=== PATIENT | female | born 1965 | race Two or more races ===

== ENCOUNTER 2024-02-17 13:25 | Outpatient (OUT) | payer OTHER, SELFPAY ==
--- NOTE | 2024-02-17 13:39 | ECG_ITS ---
[facility] Test Date: 2024-02-17 Pat Name: ANDREA CHAPIN Department: Room: - Gender: Female [employer] Supervisor: : [id number] Requested By: BERNARDO HOLLINS Order Number: [id number] Reading MD: CORY CLARKE Measurements Intervals [place] Rate: 64 P: 79 MS: 137 QRS: 6 QRSD: 86 T: 60 QT: 413 QTc: 427 Interpretive Statements SINUS RHYTHM No previous ECG available for comparison Electronically Signed On 02-18-2024 5:13:14 EST by CORY CLARKE
[2024-02-17 14:18] LABS: Basophils Absolute Auto 0.1 10^3/uL (0.0-0.1); Basophils Percent Auto 0.6 % (0.2-2.0); Eosinophils Absolute Auto 0.1 10^3/uL (0.0-0.7); Eosinophils Percent Auto 1.4 % (0.9-7.0); Hematocrit 39.7 % (36.0-48.0); Hemoglobin 13.6 g/dL (12.0-16.0); Immature Granulocytes Abs Auto 0.02 10^3/uL (0.00-0.03); Immature Granulocytes Pct Auto 0.2 % (0.0-0.5); Lymphocytes Absolute Auto 3.4 10^3/uL (1.2-3.8); Lymphocytes Percent Auto 38.4 % (20.5-60.0); Mean Corpuscular HGB Conc 34.3 g/dL (29.9-35.2); Mean Corpuscular Hemoglobin 31.7 pg (26.7-34.0); Mean Corpuscular Volume 92.5 fL (81.0-99.0); Mean Platelet Volume 10.7 fL (9.5-13.5); Monocytes Absolute Auto 0.8 10^3/uL (0.3-0.8); Monocytes Percent Auto 8.9 % (1.7-12.0); Neutrophils Absolute Auto 4.5 10^3/uL (1.4-6.5); Neutrophils Percent Auto 50.5 % (43.0-75.0); Platelet Count 303 10^3/uL (150-450); Red Blood Count 4.29 10^6/uL (4.20-5.40); Red Cell Distribution Width 12.6 % (11.0-15.0); White Blood Count 8.8 10^3/uL (4.0-11.0)
== END 2024-02-17 13:26 | disposition home or self-care (01) ==
LOC: PST 13:31
PROVIDERS: PCP Family Medicine; Visit Provider Otolaryngology
DX: Z01.810 Encounter for preprocedural cardiovascular examination (principal); Z01.812 Encounter for preprocedural laboratory examination; H69.93 Unspecified Eustachian tube disorder, bilateral
CPT/HCPCS: 85025; 93005

== ENCOUNTER 2024-02-19 09:37 | Day surgery (SDC) | payer OTHER, SELFPAY ==
[2024-02-17 14:08] VITALS: BP 116/77; PULSE 68; TEMP 36.2; O2SAT 99; BMI 28.6
[2024-02-19] VITALS (9 sets, daily range): BP systolic 102–128; BP diastolic 65–82; PULSE 71–97; TEMP 36.4–36.6; O2SAT 97–100; BMI 21.2
--- NOTE | 2024-02-19 | OP_ITS ---
OPERATION DATE: 02/19/2024 PRIMARY CARE PROVIDER: Raghavendra Gan PA-C SURGEON: Katherine Andre M.D. PREOPERATIVE DIAGNOSIS: Bilateral eustachian tube dysfunction. POSTOPERATIVE DIAGNOSIS: Bilateral eustachian tube dysfunction. PROCEDURE: Bilateral myringotomy and tubes. ANESTHESIA: General LMA. COMPLICATIONS: None. FINDINGS: Scant left serous effusion and right serous effusion. INDICATIONS: This 58-year-old woman presented with bilateral conductive hearing loss with a negative right tympanogram and a flat left tympanogram, with serous effusion evident on the left hand side. PROCEDURE: Patient identified in the holding area and taken back to the OR where she was placed in the supine position. After induction of general LMA anesthesia, the right ear was approached with the otomicroscope. Cerumen was cleaned from the canal using a cerumen curette and an anterior radial myringotomy was performed. A modified Jean?s tube was folded, inserted through the myringotomy and opened in the middle ear using microdissection. Attention was then turned to the left ear and the same procedure performed. Patient was then awakened and taken to the recovery room in good condition. MUKESH
--- OUTSIDE RECORDS SUMMARY | 2024-02-19 09:51 | XMS_ITS | CCD ---
Author Organization [facility] Care Team Providers Care Cannoneer Name Role Phone Itz Hall DO Primary Care Provider Itz HALL Primary Care Physician Shilpa Michelle Primary Care Physician Gunjan Ann Unavailable Unavailable Itz Hall DO Primary Care Provider PROVIDER, UNKNOWN Referring Unavailable ITZ HALL Primary Care Unavailable Itz Hall DO Primary Care Provider Itz HALL Primary Care Physician Yovany Ivan Attending Unavailable Yovany Ivan Admitting Unavailable Yovany Ivan Referring Unavailable Reece Russell Attending Unavailable Reece Russell Admitting Unavailable Reece Russell Referring Unavailable Robinson Pederson. Attending Unavailable Yovany Ivan Attending Unavailable Yovany Ivan Admitting Unavailable Yovany Ivan Referring Unavailable Rafael VAZQUEZ Itz S Primary Care Provider YOVANY IVAN Attending Unavailable ITZ HALL Primary Care Unavailable ITZ HALL Primary Care Unavailable ITZ HALL Primary Care Unavailable YOVANY IVAN Attending Unavailable ITZ HALL Primary Care Unavailable Robinson Thao Primary Care Provider BERNARDO HOLLINS Attending Unavailable ROBINSON PEDERSON Referring Unavailable YAJAIRA LOUIS Attending Unavailable BERNARDO HOLLINS Attending Unavailable Allergies Allergy Classification Reported Allergen(s) Allergy Type Date of Onset Reaction(s) Facility (20 sources) Latex; Translations: [LATEX] Drug Intolerance 1 Rash, Eruption of skin (disorder) [facility] (6 sources) Bee/Wasp/Ant venom; Translations: [Bee Stings] Propensity to adverse reactions to substance [facility] (2 sources) Honey bee venom Propensity to adverse reactions 4 [facility] Work Phone: (2 sources) Latex Propensity to adverse reactions 4 Itching, Rash [facility] Medications Current Medications Medication Drug Class(es) Dates Sig (Normalized) Sig (Original) diazePAM 5 mg oral tablet (20 sources) Benzodiazepine Start: 01-25-2024 End: 04-24-2024 take 1 tablet by mouth every six hours as needed for anxiety and anxiety diazePAM (VALIUM) 5 mg tablet Indications: Anxiety Take 1 tablet by mouth every 6 hours as needed for up to 90 days. 50 tablet 1 01/25/2024 04/24/2024 Active Start: 06-09-2023 End: 07-09-2023 take 1 tablet by mouth every six hours as needed diazePAM (VALIUM) 5 mg tablet Indications: Malignant neoplasm of upper-outer quadrant of left breast in female, estrogen receptor negative (HCC) , Abnormal mammogram of left breast Take 1 tablet by mouth every 6 hours as needed for up to 30 days. 50 tablet 1 06/09/2023 07/09/2023 Active Start: 12-05-2022 End: 01-23-2024 take 1 tablet by mouth every six hours as needed diazePAM (VALIUM) 5 mg tablet Indications: Malignant neoplasm of upper-outer quadrant of left breast in female, estrogen receptor negative (HCC) , Abnormal mammogram of left breast Take 1 tablet by mouth every 6 hours as needed for up to 30 days. 50 tablet 1 12/05/2022 01/04/2023 Active Start: 06-06-2022 End: 09-08-2022 take 1 tablet by mouth every eight hours as needed diazePAM (VALIUM) 5 mg tablet Indications: Malignant neoplasm of upper-outer quadrant of left breast in female, estrogen receptor negative (HCC) , Anxiety Take 1 tablet by mouth every 8 hours as needed for up to 90 days. 50 tablet 1 06/10/2022 09/08/2022 Start: 08-31-2021 End: 11-29-2021 take 1 tablet by mouth every eight hours as needed diazePAM (VALIUM) 5 mg tablet Indications: Malignant neoplasm of upper-outer quadrant of left breast in female, estrogen receptor negative (HCC) , Anxiety Take 1 tablet by mouth every 8 hours as needed for up to 90 days. 50 tablet 1 08/31/2021 11/29/2021 Active Start: 06-04-2019 take 1 tablet by sherrie th once daily Valium 5 mg Tab 5 mg = 1 tab(s), Oral, Daily, # 30 tab(s), Refills(s) 5, Pharmacy: [facility] - [place], 167.6, cm, 05/31/19 14:12:00 EST, Height/Length Measured, 56.1, kg, 05/31/19 14:12:00 EST, Weight Measured Start Date: 06/04/19 Status: Ordered Comment on above: Take 1 tablet by sherrie th every 8 hours as needed for up to 90 days. Take 1 tablet by sherrie th every 6 hours as needed for up to 30 days. Take 5 mg by mouth e very 6 hours as needed. diphenhydrAMINE (16 sources) Histamine-1 Receptor Antagonist diphenhydramine HCl (BENADRYL ALLERGY ORAL) Take by mouth. Active diphenhydramine HCl (BENADRYL ALLERGY ORAL) Take by mouth. 0 Active Comment on above: Take by mouth. fluticasone propionate 0.05 mg/actuat metered dose nasal spray (1 source) Corticosteroid Start: 12-01-2023 End: 12-08-2023 take 1 spray(s) nasal route twice daily Flonase 0.05 mg/inh [place] 1 spray(s), Nasal, BID for 7 day(s), 16 gm, Refill(s) 0, each nostril, [facility], 168, cm, 12/01/23 15:54:00 EDT, Height/Length Dosing, 59, kg, 12/01/23 15:54:00 EDT, Weight Dosing Start Date: 12/01/23 Stop Date: 12/08/23 Status: Ordered loratadine 10 mg oral capsule (12 sources) Start: 01-05-2020 End: 06-06-2022 loratadine 10 mg cap Take 10 mg by mouth. 01/05/2020 Active take 1 tablet by mouth once kailey y loratadine (Claritin) 10 MG tablet Take 10 mg by mouth Daily Active Comment on above: Take by mouth. triamcinolone acetonide 0.055 mg/actuat metered dose nasal spray (5 sources) Corticosteroid Start: 12-22-2023 End: 12-21-2024 take 2 spray(s) nasal route once daily triamcinolone (Nasacort) 55 MCG/ACT nasal inhaler Indications: OME (otitis media with effusion), left Administer 2 sprays into each nostril Daily 16.5 g 11 12/22/2023 12/21/2024 Active Completed/Discontinued Medications Medication Drug Class(es) Dates Sig (Normalized) Sig (Original) acetaminophen 325 mg / oxyCODONE hydrochloride 5 mg oral tablet (2 sources) Opioid Agonist End: 01-08-2024 oxyCODONE-acetaminop hen (PERCOCET) 5-325 mg tablet Take by mouth every 8 hours as needed for pain. 01/08/2024 Discontinued (Discontinued by Patient) Comment on above: Take by mouth every 8 hours as needed for pain. EPINEPHrine 0.01 mg/ml / lidocaine hydrochloride 10 mg/ml injectable solution (1 source) Antiarrhythmic, alpha-Adrenergic Agonist, beta-Adrenergic Agonist, Catecholamine, Amide Local Anesthetic Start: 07-04-2022 End: 07-04-2022 SUBCUTANEOUS, X (OR/PROCEDURE) PRN, Starting on Coni 07/04/22 at 0957, Until Coni 07/04/22 at 0957, Intraprocedure 10 ml lidocaine hydrochloride 10 mg/ml injection (1 source) Antiarrhythmic, Amide Local Anesthetic Start: 07-04-2022 End: 07-04-2022 SUBCUTANEOUS, X (OR/PROCEDURE) PRN, Starting on Coni 07/04/22 at 0957, Until Coni 07/04/22 at 0957, Intraprocedure pantoprazole 40 mg delayed release oral tablet (2 sources) Proton Pump Inhibitor Start: 05-31-2021 End: 06-06-2022 take 1 tablet by mouth once daily pantoprazole DR (PROTONIX) 40 mg tablet Take 1 tablet by mouth once daily. 90 tablet 3 05/31/2021 06/06/2022 Discontinued Comment on above: Take 1 tablet by sherrie once daily. Problems Problem Classification Problem Date Documented Da te Episodic/Chronic Anxiety disorders (7 sources) Anxiety; Translations: [Anxiety disorder, unspecified] Chronic Cancer of breast (9 sources) Malignant neoplasm of upper-outer quadrant of female breast; Translations: [Malignant neoplasm of upper-outer quadrant of left female breast] Onset: 01-08-2024 Chronic Fever of unknown origin (5 sources) Fever 02-28-2020 Episodic Nonmalignant breast conditions (2 sources) Mammographic calcification found on diagnostic imaging of breast; Translations: [Mammographic calcification of breast] Onset: 07-04-2022 07-04-2022 Episodic Other circulatory disease (7 sources) Low blood pressure; Translations: [Hypotension, unspecified] Onset: 12-18-2023 04-20-2012 Episodic Other ear and sense organ disorders (1 source) Bilateral hearing loss; Translations: [Conductive hearing loss, unilateral, right ear with restricted hearing on the contralateral side] 02-13-2024 Chronic Other gastrointestinal disorders (7 sources) Constipation; Translations: [Constipation, unspecified] Onset: 12-18-2023 10-05-2018 Episodic Other gastrointestinal disorders (7 sources) Dysphagia; Translations: [Dysphagia, unspecified] Onset: 12-18-2023 11-04-2018 Episodic Other nervous system disorders (1 source) Chronic pain; Translations: [Other chronic pain] Onset: 02-04-2022 Chronic Other nutritional; endocrine; and metabolic disorders (5 sources) Loss of appetite 10-05-2018 Episodic Other screening for suspected conditions (not mental disorders or infectious disease) (3 sources) Mammography abnormal; Translations: [Other abnormal and inconclusive findings on diagnostic imaging of breast] Episodic Otitis media and related conditions (3 sources) Acute secretory otitis media; Translations: [Other acute nonsuppurative otitis media, bilateral] Onset: 12-01-2023 Episodic Residual codes; unclassified (5 sources) Chronic back pain 10-20-2019 Episodic Residual codes; unclassified (5 sources) Generalized aches and pains 02-28-2020 Episodic Residual codes; unclassified (1 source) Estrogen receptor negative status [ER-]; Translations: [Malignant neoplasm of upper-outer quadrant of left breast in female, estrogen receptor negative (HCC)] Onset: 01-08-2024 Episodic Spondylosis; intervertebral disc disorders; other back problems (12 sources) Cervical radiculopathy; Translations: [Radiculopathy, cervical region] Onset: 02-04-2022 Episodic Substance-related disorders (5 sources) Smoker 10-20-2019 Chronic Comment on above: Added secondary to d ocumentation in Social History. Results Test Name Value Interpretation Reference Range Facility Auditory function testson Right Ear: Mild sensorineural hearing loss from 4K Hz - 6K Hz rising to normal hearing at 8K Hz Left Ear: Mild to severe conductive hearing loss above 500 Hz [facility] CA 27.29 BLOODon 01-09-2024 Cancer Ag - Qn 26.2 [arb'U]/mL NINF - 38.6 U/mL [facility] Comment on above: The CA27.29 test was performed using the Siemens Galeneaaur XP chemiluminometric immunoassay method. Results obtained with different assay methods or kits cannot be used interchangeably. Cancer Ag - Qnon 024 Interpretation and review of laboratory results [facility] CBC W Auto Differential pane l (Bld)on 01-08-2024 Basophils (Bld) [#/Vol] 0.04 10*3/uL [facility] Basophils/100 WBC (Bld) 0.5 % [facility] Differential cell count method Nom (Bld) Auto [facility] Eosinophils (Bld) [#/Vol] 0.15 10*3/uL [facility] Eosinophils/100 WBC (Bld) 1.9 % [facility] Erythrocyte distribution width (RBC) [Ratio] 12.6 % 11.5 - 15.0 % [facility] Hematocrit (Bld) [Volume fraction] 38.5 % 36.0 - 46.0 % [facility] Hemoglobin (Bld) [Mass/Vol] 13.4 g/dL 11.5 - 15.5 g/dL [facility] Immature granulocytes (Bld) [#/Vol] [facility] Immature granulocytes/100 WBC (Bld) 0.3 % [facility] Interpretation and review of laboratory results Abnormal [facility] Lymphocytes (Bld) [#/Vol] 2.89 10*3/uL [facility] Lymphocytes/100 WBC (Bld) 37.5 % [facility] MCH (RBC) [Entitic mass] 31.7 pg 26.0 - 34.0 pg [facility] MCHC (RBC) [Mass/Vol] 34.8 g/dL 30.5 - 36.0 g/dL [facility] MCV (RBC) [Entitic vol] 91.0 fL 80.0 - 100.0 fL [facility] Monocytes (Bld) [#/Vol] 0.89 10*3/uL High NINF [facility] Monocytes/100 WBC (Bld) 11.6 % [facility] Neutrophils (Bld) [#/Vol] 3.71 10*3/uL [facility] Neutrophils/100 WBC (Bld) 48.2 % [facility] Nucleated RBC (Bld) [#/Vol] NINF [facility] Nucleated RBC/100 WBC (Bld) [Ratio] 0.0 % /100 WBC [facility] Platelet mean volume (Bld) [Entitic vol] 10.9 fL 9.0 - 12.7 fL [facility] Platelets (Bld) [#/Vol] 290 10*3/uL [facility] RBC (Bld) [#/Vol] 4.23 10*6/uL 3.90 - 5.2 0 m/uL [facility] WBC (Bld) [#/Vol] 7.70 10*3/uL [facility] Basophils (Bld) [#/Vol] 0.04 10*3/uL Normal <0.11 [facility] Comment on above: Order Comment: Speci men Type: BLOOD SPECIMEN Ordering Facility: [facility] Address: [address] [place] [address] Performed By: #### 5 7021-8 #### [facility] CLIA [id number] [address] [place] [address] 965[address] Basophils/100 WBC (Bld) 0.5 % Normal [facility] Comment on above: Order Comment: Speci men Type: BLOOD SPECIMEN Ordering Facility: [facility] Address: [address] [place] [address] Performed By: #### 5 7021-8 #### [facility] CLIA [id number] [address] [place] [address]350 Differential cell count method Nom (Bld) Auto Normal [facility] Comment on above: Order Comment: Speci men Type: BLOOD SPECIMEN Ordering Facility: [facility] Address: [address] [place] [address] Performed By: #### 5 7021-8 #### [facility] CLIA [id number] [address] [place] [address] 18719 Eosinophils (Bld) [#/Vol] 0.15 10*3/uL Normal <0.46 [facility] Comment on above: Order Comment: Speci men Type: BLOOD SPECIMEN Ordering Facility: [facility] Address: [address] [place] [address] Performed By: #### 5 7021-8 #### [facility] CLIA [id number] [address] [place] [address] 42665 Eosinophils/100 WBC (Bld) 1.9 % Normal [facility] Comment on above: Order Comment: Speci men Type: BLOOD SPECIMEN Ordering Facility: [facility] Address: [address] [place] [address] Performed By: #### 5 7021-8 #### [facility] CLIA [id number] [address] [place] [address] 05539 Erythrocyte distribution width (RBC) [Ratio] 12.6 % Normal 11.5-15.0 [facility] Comment on above: Order Comment: Speci men Type: BLOOD SPECIMEN Ordering Facility: [facility] Address: [address] [place] [address] Performed By: #### 5 7021-8 #### [facility] CLIA [id number] [address] [place] [address] 17742 Hematocrit (Bld) [Volume fraction] 38.5 % Normal 36.0-46.0 [facility] Comment on above: Order Comment: Speci men Type: BLOOD SPECIMEN Ordering Facility: [facility] Address: [address] [place] [address] Performed By: #### 5 7021-8 #### [facility] CLIA [id number] [address] [place] [address] 80693 Hemoglobin (Bld) [Mass/Vol] 13.4 g/dL Normal 11.5-15.5 [facility] Comment on above: Order Comment: Speci men Type: BLOOD SPECIMEN Ordering Facility: [facility] Address: [address] [place] [address] Performed By: #### 5 7021-8 #### [facility] CLIA [id number] [address] [place] [address] 91634 Immature granulocytes (Bld) [#/Vol] 10*3/uL Normal <0.10 [facility] Comment on above: Order Comment: Speci men Type: BLOOD SPECIMEN Ordering Facility: [facility] Address: [address] [place] [address] Performed By: #### 5 7021-8 #### [facility] CLIA [id number] [address] [place] [address] 71700 Immature granulocytes/100 WBC (Bld) 0.3 % Normal [facility] Comment on above: Order Comment: Speci men Type: BLOOD SPECIMEN Ordering Facility: [facility] Address: [address] [place] [address] Performed By: #### 5 7021-8 #### [facility] CLIA [id number] [address] [place] [address] 07509 Lymphocytes (Bld) [#/Vol] 2.89 10*3/uL Normal 1.00-4.00 [facility] Comment on above: Order Comment: Speci men Type: BLOOD SPECIMEN Ordering Facility: [facility] Address: [address] [place] [address] Performed By: #### 5 7021-8 #### [facility] CLIA [id number] [address] [place] [address] 05103 Lymphocytes/100 WBC (Bld) 37.5 % Normal [facility] Comment on above: Order Comment: Speci men Type: BLOOD SPECIMEN Ordering Facility: [facility] Address: [address] [place] [address] Performed By: #### 5 7021-8 #### [facility] CLIA [id number] [address] [place] [address] 79553 MCH (RBC) [Entitic mass] 31.7 pg Normal 26.0-34.0 [facility] Comment on above: Order Comment: Speci men Type: BLOOD SPECIMEN Ordering Facility: [facility] Address: [address] [place] [address] Performed By: #### 5 7021-8 #### [facility] CLIA [id number] [address] [place] [address] 15023 MCHC (RBC) [Mass/Vol] 34.8 g/dL Normal 30.5-36.0 [facility] Comment on above: Order Comment: Speci men Type: BLOOD SPECIMEN Ordering Facility: [facility] Address: [address] [place] [address] Performed By: #### 5 7021-8 #### [facility] CLIA [id number] [address] [place] [address] 04799 MCV (RBC) [Entitic vol] 91.0 fL Normal 80.0-100.0 [facility] Comment on above: Order Comment: Speci men Type: BLOOD SPECIMEN Ordering Facility: [facility] Address: [address] [place] [address] Performed By: #### 5 7021-8 #### [facility] CLIA [id number] [address] [place] [address] 01075 Monocytes (Bld) [#/Vol] 0.89 10*3/uL High <0.87 [facility] Comment on above: Order Comment: Speci men Type: BLOOD SPECIMEN Ordering Facility: [facility] Address: [address] [place] [address] Performed By: #### 5 7021-8 #### [facility] CLIA [id number] [address] [place] [address] 69246 Monocytes/100 WBC (Bld) 11.6 % Normal [facility] Comment on above: Order Comment: Speci men Type: BLOOD SPECIMEN Ordering Facility: [facility] Address: [address] [place] [address] Performed By: #### 5 7021-8 #### [facility] CLIA [id number] [address] [place] [address] Neutrophils (Bld) [#/Vol] 3.71 10*3/uL Normal 1.45-7.50 [facility] Comment on above: Order Comment: Speci men Type: BLOOD SPECIMEN Ordering Facility: [facility] Address: [address] [place] [address]35 Performed By: #### 5 7021-8 #### [facility] CLIA [id number] [address] [place] [address] 04357 Neutrophils/100 WBC (Bld) 48.2 % Normal [facility] Comment on above: Order Comment: Speci men Type: BLOOD SPECIMEN Ordering Facility: [facility] Address: [address] [place] [address] Performed By: #### 5 7021-8 #### [facility] CLIA [id number] [address] [place] [address] 58605 Nucleated RBC (Bld) [#/Vol] 10*3/uL Normal <0.01 [facility] Comment on above: Order Comment: Speci men Type: BLOOD SPECIMEN Ordering Facility: [facility] Address: [address] [place] [address] Performed By: #### 5 7021-8 #### [facility] CLIA [id number] [address] [place] [address] 31229 Nucleated RBC/100 WBC (Bld) [Ratio] 0.0 /100 WBC Normal [facility] Comment on above: Order Comment: Speci men Type: BLOOD SPECIMEN Ordering Facility: [facility] Address: [address] [place] [address] Performed By: #### 5 7021-8 #### [facility] CLIA [id number] [address] [place] [address] 98132 Platelet mean volume (Bld) [Entitic vol] 10.9 fL Normal 9.0-12.7 [facility] Comment on above: Order Comment: Speci men Type: BLOOD SPECIMEN Ordering Facility: [facility] Address: [address] [place] [address] Performed By: #### 5 7021-8 #### [facility] CLIA [id number] [address] [place] [address] Platelets (Bld) [#/Vol] 290 10*3/uL Normal 150-400 [facility] Comment on above: Order Comment: Speci men Type: BLOOD SPECIMEN Ordering Facility: [facility] Address: [address] [place] [address] Performed By: #### 5 7021-8 #### [facility] CLIA [id number] [address] [place] [address] 77132 RBC (Bld) [#/Vol] 4.23 10*6/uL Normal 3.90-5.20 [facility] Comment on above: Order Comment: Speci men Type: BLOOD SPECIMEN Ordering Facility: [facility] Address: [address] [place] [address] Performed By: #### 5 7021-8 #### [facility] CLIA [id number] [address] [place] [address] 93297 WBC (Bld) [#/Vol] 7.70 10*3/uL Normal 3.70-11.00 [facility] Comment on above: Order Comment: Speci men Type: BLOOD SPECIMEN Ordering Facility: [facility] Address: [address] [place] [address] Performed By: #### 5 7021-8 #### [facility] CLIA [id number] [address] [place] [address]504 CNOVSPon 01-08-2024 CNOVSP Visit (SP) Office ([place]) MINNA [id number]) 1965 F Date Time Provider Department 01/08/24 3:15 PM YOVANY IVAN During your visit today, we recorded the following information about you: Temperature Pulse Respiration Blood pressure 97.7 degrees 80/minute 16/minute 129/76 Weight Height 60 kg 1.676 m Yovany Ivan MD 01/09/2024 6:09 AM Signed PATIENT NAME: Minna Yi DATE: 01/08/2024 PRIMARY CARE PHYSICIAN: Dr. Hall OTHER PHYSICIANS: Dr. Galindo, Dr. De Guzman Portions of this encounter note have been copied from my note from 07/10/2023 and has been updated where appropriate, and reflect my current medical decision making from today. CC: This is a 58 year old female with a history of breast cancer, seen for scheduled follow-up. INTERIM HISTORY: Since the patient's last visit here she has had no significant medical changes. Her chronic neck and back pain persist and are unchanged. She has ongoing anxiety for which she takes Valium with improvement. No new complaints today. She has noticed no changes in her breasts. Most recent mammogram 12/09/2023 benign. Routine surveillance mammogram at 12 months recommended. MEDICATIONS: oxyCODONE-acetaminophen (PERCOCET) 5-325 mg tablet Take by mouth every 8 hours as needed for pain. diazePAM (VALIUM) 5 mg tablet Take 5 mg by mouth every 6 hours as needed. diphenhydramine HCl (BENADRYL ALLERGY ORAL) Take by mouth. ALLERGIES: Latex PAST MEDICAL HISTORY: No past medical history on file. PAST SURGICAL HISTORY: No past surgical history on file. REVIEW OF SYSTEMS: GENERAL: No weight loss, malaise or fevers. HEENT: Negative for frequent or significant headaches, No changes in hearing or vision, no nose bleeds or other nasal problems RESPIRATORY: Negative for cough, wheezing or shortness of breath. CARDIOVASCULAR: Negative for chest pain, leg swelling or palpitations. GI: Negative for abdominal discomfort, blood in stools or black stools or change in bowel habits : No history of dysuria, frequency or incontinence MUSCULOSKELETAL: Negative for: joint pain or swelling, back pain and muscle pain SKIN: Negative for lesions, rash, and itching. HEMATOLOGY/LYMPHOLOGY: Negative for prolonged bleeding, bruising easily or swollen nodes. NEURO: No history of headaches, syncope, paralysis, seizures or tremors PHYSICAL EXAM: Vitals: BP 129/76 Pulse 80 Temp 36.5 ?C (97.7 ?F) (Temporal) Resp 16 Ht 167.6 cm (5' 5.98 ) Wt 60 kg (132 lb 4.4 oz) SpO2 97% BMI 21.36 kg/m? General appearance: well appearing, alert, in no acute distress, well-hydrated, well nourished Skin: skin color, texture, turgor normal, no suspicious rashes or lesions Head: normal Eyes: Anicteric sclera. Pupils are equally round and reactive to light. Extraocular movements are intact. Ears: negative findings: external ears normal to inspection and palpation Oropharynx: negative Neck: Supple, no adenopathy; thyroid symmetric, normal size Lymph Nodes: No Submandibular, cervical, supraclavicular, axillary, or inguinal lymphadenopathy present Breast: Well-healed left lumpectomy scar on the left with mild surrounding tenderness. Right breast normal. Back: no tenderness to palpation Lungs: clear to auscultation, no wheezing or rhonchi Heart: Negative. RRR without murmur, gallop, or rubs. No ectopy. Abdomen: Normal abdominal exam, Abdomen soft, non-tender. Bowel sounds normal. No masses, organomegaly Rectal: Not done Extremities: Extremities normal. No deformities, edema, or skin discoloration. Good capillary refill. Musculoskeletal: No joint swelling, deformity, or tenderness. Peripheral pulses: Normal PATHOLOGY: 07/04/2022 Breast, left, at 9:00, middle depth, calcifications, Top hat clip, stereotactic core biopsy: ---Benign breast parenchyma with stromal fibrosis. ---Microcalcifications are present within benign breast. LABORATORY DATA: Hemoglobin (g/dL) Date Value 01/08/2024 13.4 05/31/2021 13.7 Hematocrit (%) Date Value 01/08/2024 38.5 05/31/2021 41.0 WBC (k/uL) Date Value 01/08/2024 7.70 05/31/2021 9.01 Platelet Count (k/uL) Date Value 01/08/2024 290 05/31/2021 321 RADIOLOGY/OTHER STUDIES: 12/09/2023 Bilateral diagnostic mammogram ([facility]) Benign finding. Normal interval follow-up at 12 months recommended. 05/15/2023 Diagnostic left mammogram ([facility]) BI-RADS 3, probably benign. Short interval follow-up with bilateral mammogram at 6 months recommended. 01/03/2023 Bilateral diagnostic mammogram ([facility]) Benign findings. Normal interval follow-up. 06/11/2022 [facility] Mammogram interpretation The tissue in both breasts is extremely dense, which can decrease the sensitivity of the mammogram. There are no suspicious mammographic finding seen in the right breast, with overall pattern not significantly (more content not included)... Normal [facility] CNPNon 01-08-2024 CNPN Telephone (NCCAP) MINNA YI ([id number]) 1965 F Date Time Provider Department 01/08/24 YOVANY IVAN During your visit today, we recorded the following information about you: Johnny Wright 01/08/2024 4:00 PM Signed Diagnosed in 2008. Patient is requesting if her Mammogram can be changed to Screening. She states when it's ordered Diagnostic she gets a big out of pocket costs from her insurance. If in agreement, can you please place an order for screening? Thank you! Yovany Art MD 01/08/2024 4:44 PM Signed I will change the order from diagnostic to screening. Thanks, Johnny Wilson 01/08/2024 5:01 PM Signed Faxed order to [facility] January 08, 2024 5:01 PM Johnny Wright Allergies As of Date: 01/08/2024 Noted Allergy Reaction LATEX 06/01/2020 2 - Rash Date Reviewed: 01/08/2024 Reviewed by: Emmy Chen MA - Fully Assessed Reason for Visit: Change Of Order [9022] Prescriptions as of 01/08/2024 - loratadine 10 mg cap Take 10 mg by mouth. - triamcinolone acetonide (NASACORT AQ) 55 mcg nasal inhaler Use 2 Sprays in the nose once daily. - diazePAM (VALIUM) 5 mg tablet Take 5 mg by mouth every 6 hours as needed. - diphenhydramine HCl (BENADRYL ALLERGY ORAL) Take by mouth. Problem List As Of Date: 01/08/2024 (None) Encounter Status:Closed by JOHNNY WRIGHT on 01/08/24 Normal [facility] Cancer Ag27-29 SerPl-aCncon 01-08-2024 Cancer Ag 27-29 Qn 26.2 [arb'U]/mL Normal <38.6 [facility] Comment on above: Order Comment: Speci men Type: BLOOD SPECIMEN Ordering Facility: [facility] Address: [address] [place] [address] Result Comment: The CA27.29 test was performed using the Siemens Galeneaaur XP chemiluminometric immunoassay method. Results obtained with different assay methods or kits cannot be used interchangeably. Performed By: #### 1 7842-6 #### [facility] CLIA [id number] [address] [place] [address] [place] Comprehensive metabolic 2000 panelOrdered By: Leonora Davis on 01-08-2024 Albumin [Mass/Vol] 4.3 g/dL 3.9 - 4.9 g/dL [facility] ALP [Catalytic activity/Vol] 127 U/L High 34 - 123 U/L [facility] ALT [Catalytic activity/Vol] 12 U/L 7 - 38 U/L [facility] Anion gap [Moles/Vol] 10 mmol/L 8 - 15 mmol/L [facility] AST [Catalytic activity/Vol] 13 U/L 13 - 35 U/L [facility] Bilirubin [Mass/Vol] 0.2 mg/dL 0.2 - 1 .3 mg/dL [facility] Calcium [Mass/Vol] 10.1 mg/dL 8.5 - 10. 2 mg/dL [facility] Chloride [Moles/Vol] 102 mmol/L 98 - 10 7 mmol/L [facility] CO2 [Moles/Vol] 27 mmol/L 22 - 30 mmol/L [facility] Creatinine [Mass/Vol] 0.76 mg/dL 0.58 - 0.96 mg/dL [facility] GFR/1.73 sq M.predicted among non-blacks MDRD (S/P/Bld) [Vol rate/Area] 92 mL/min/{1.73_m2} - PINF [facility] Comment on above: Estimated Glomerular Filtration Rate (eGFR) is calculated using the 2020 CKD-EPI creatinine equation. This equation utilizes serum creatinine, sex, and age as parameters. The creatinine assay has traceable calibration to isotope dilution-mass spectrometry. Refer to KDIGO guidelines for clinical interpretation. In patients with unstable renal function, e.g. those with acute kidney injury, the eGFR may not accurately reflect actual GFR. Glucose [Mass/Vol] 95 mg/dL 74 - 99 mg/dL [facility] Comment on above: The [place] Diabete s Association (ADA) provides guidance for cutoff values for fasting glucose and random glucose. The ADA defines fasting as no caloric intake for at least 8 hours. Fasting plasma glucose results between 100 to 125 mg/dL indicate increased risk for diabetes (prediabetes). Fasting plasma glucose results greater than or equal to 126 mg/dL meet the criteria for diagnosis of diabetes. In the absence of unequivocal hyperglycemia, results should be confirmed by repeat testing. In a patient with classic symptoms of hyperglycemia or hyperglycemic crisis, random plasma glucose results greater than or equal to 200 mg/dL meet the criteria for diagnosis of diabetes. Reference: Standards of Medical Care in Diabetes 2016, [place] Diabetes Association. Diabetes Care. 2016.39(Suppl 1). Interpretation and review of laboratory results Abnormal [facility] Potassium [Moles/Vol] 4.5 mmol/L 3.7 - 5.1 mmol/L [facility] Protein [Mass/Vol] 7.4 g/dL 6.3 - 8.0 g/dL [facility] Sodium [Moles/Vol] 139 mmol/L 136 - 144 mmol/L [facility] Urea nitrogen [Mass/Vol] 11 mg/dL 7 - 21 mg/dL [facility] Comprehensive metabolic 2000 panelon 01-08-2024 Albumin [Mass/Vol] 4.3 g/dL Normal 3.9-4.9 [facility] Comment on above: Order Comment: Speci men Type: BLOOD SPECIMEN Ordering Facility: [facility] Address: [address] [place] [address] Performed By: #### 2 4323-8 #### [facility] CLIA [id number] [address] [place] [address] ALP [Catalytic activity/Vol] 127 U/L High 34-123 [facility] Comment on above: Order Comment: Speci men Type: BLOOD SPECIMEN Ordering Facility: [facility] Address: [address] [place] [id number] Performed By: #### 2 4323-8 #### [facility] CLIA [id number] [address] [place] [address] ALT [Catalytic activity/Vol] 12 U/L Normal 7-38 [facility] Comment on above: Order Comment: Speci men Type: BLOOD SPECIMEN Ordering Facility: [facility] Address: [address] [place], [place] [id number] Performed By: #### 2 4323-8 #### [facility] CLIA [id number] [address] [place] [address] Anion gap [Moles/Vol] 10 mmol/L Normal 8-15 [facility] Comment on above: Order Comment: Speci men Type: BLOOD SPECIMEN Ordering Facility: [facility] Address: [address] [place], [place] [id number] Performed By: #### 2 4323-8 #### [facility] CLIA [id number] [address] [place] [address] AST [Catalytic activity/Vol] 13 U/L Normal 13-35 [facility] Comment on above: Order Comment: Speci men Type: BLOOD SPECIMEN Ordering Facility: [facility] Address: [facility] [place] [id number] Performed By: #### 2 4323-8 #### [facility] CLIA [id number] [address] [place] [address] Bilirubin [Mass/Vol] 0.2 mg/dL Normal 0.2-1.3 [facility] Comment on above: Order Comment: Speci men Type: BLOOD SPECIMEN Ordering Facility: [facility] Address: [address] [place] [address] Performed By: #### 2 4323-8 #### [facility] CLIA [id number] [address] [place] [address] Calcium [Mass/Vol] 10.1 mg/dL Normal 8.5-10.2 [facility] Comment on above: Order Comment: Speci men Type: BLOOD SPECIMEN Ordering Facility: [facility] Address: [address] [place] [phone] Performed By: #### 2 4323-8 #### [facility] CLIA [id number] [address] [place] [address] Chloride [Moles/Vol] 102 mmol/L Normal 98-107 [facility] Comment on above: Order Comment: Speci men Type: BLOOD SPECIMEN Ordering Facility: [facility] Address: [address] [place] [address] Performed By: #### 2 4323-8 #### [facility] CLIA [id number] [address] [place] [address] CO2 [Moles/Vol] 27 mmol/L Normal 22-30 [facility] Comment on above: Order Comment: Speci men Type: BLOOD SPECIMEN Ordering Facility: [facility] Address: [address] [place] [address] Performed By: #### 2 4323-8 #### [facility] CLIA [id number] [address] [place] [address] Creatinine [Mass/Vol] 0.76 mg/dL Normal 0.58-0.96 [facility] Comment on above: Order Comment: Speci men Type: BLOOD SPECIMEN Ordering Facility: [facility] Address: [address] [place] [phone] Performed By: #### 2 4323-8 #### [facility] CLIA [id number] [address] [place] [address] Creatinine and Glomerular filtration rate.predicted panel (S/P/Bld) 92 mL/min/1.73m??? Normal >=60 [facility] Comment on above: Order Comment: Shantelle roque Type: BLOOD SPECIMEN Ordering Facility: [facility] Address: [address] [place] [address] Result Comment: Elva mated Glomerular Filtration Rate (eGFR) is calculated using the 2020 CKD-EPI creatinine equation. This equation utilizes serum creatinine, sex, and age as parameters. The creatinine assay has traceable calibration to isotope dilution-mass spectrometry. Refer to KDIGO guidelines for clinical interpretation. In patients with unstable renal function, e.g. those with acute kidney injury, the eGFR may not accurately reflect actual GFR. Performed By: #### 2 4323-8 #### [facility] CLIA [id number] [address] [place] [address] Glucose [Mass/Vol] 95 mg/dL Normal 74-99 [facility] Comment on above: Order Comment: Shantelle roque Type: BLOOD SPECIMEN Ordering Facility: [facility] Address: [address] [place] [address] Result Comment: The [place] Diabetes Association (ADA) provides guidance for cutoff values for fasting glucose and random glucose. The ADA defines fasting as no caloric intake for at least 8 hours. Fasting plasma glucose results between 100 to 125 mg/dL indicate increased risk for diabetes (prediabetes). Fasting plasma glucose results greater than or equal to 126 mg/dL meet the criteria for diagnosis of diabetes. In the absence of unequivocal hyperglycemia, results should be confirmed by repeat testing. In a patient with classic symptoms of hyperglycemia or hyperglycemic crisis, random plasma glucose results greater than or equal to 200 mg/dL meet the criteria for diagnosis of diabetes. Reference: Standards of Medical Care in Diabetes 2016, [place] Diabetes Association. Diabetes Care. 2016.39(Suppl 1). Performed By: #### 2 4323-8 #### [facility] CLIA [id number] [address] [place] [address] Potassium [Moles/Vol] 4.5 mmol/L Normal 3.7-5.1 [facility] Comment on above: Order Comment: Shantelle roque Type: BLOOD SPECIMEN Ordering Facility: [facility] Address: [address] [place] [address] Performed By: #### 2 4323-8 #### [facility] CLIA [id number] [address] [place] [address] Protein [Mass/Vol] 7.4 g/dL Normal 6.3-8.0 [facility] Comment on above: Order Comment: Speci men Type: BLOOD SPECIMEN Ordering Facility: [facility] Address: [address] [place] [address] Performed By: #### 2 4323-8 #### [facility] CLIA [id number] [address] [place] [address] Sodium [Moles/Vol] 139 mmol/L Normal 136-144 [facility] Comment on above: Order Comment: Speci men Type: BLOOD SPECIMEN Ordering Facility: [facility] Address: [address] [place] [address] Performed By: #### 2 4323-8 #### [facility] CLIA [id number] [address] [place] [address] Urea nitrogen [Mass/Vol] 11 mg/dL Normal 7-21 [facility] Comment on above: Order Comment: Speci men Type: BLOOD SPECIMEN Ordering Facility: [facility] Address: [address] [place], [place] [phone] Performed By: #### 2 4323-8 #### [facility] CLIA [id number] [address] [place] [address] [place] Mamm Diag w/CAD if perf a nd 3D Bilon 12-09-2023 [place] Mamm Diag w/CAD if perf and 3D Ozzy Exam Date/Time: 12/09/2023 09:05 EDT Reason for Exam: C50.412 Report IMPRESSION: BIRADS 2 BENIGN FINDINGS, NORMAL INTERVAL FOLLOW-UP Follow-up: 12 MONTH RECALL Density: Category C - Heterogeneously dense. Vascular calcifications: Absent. EXAM: [place] Mamm Diag w/CAD if perf and 3D Ozzy DATE: 12/09/2023 8:47 AM CLINICAL HISTORY: C50.412. COMPARISONS: 01/03/2023, 05/28/2022, 05/25/2021, and left breast mammograms 05/15/2023. TECHNIQUE: Routine full-field digital mammograms and 3D breast tomosynthesis were obtained of both breasts. FINDINGS: There are no developing densities, suspicious microcalcifications, or areas of architectural distortion identified on the current study. Postoperative changes on the left, dystrophic calcifications with adjacent biopsy clip medially. Dense Breast: Yes. CAD analysis was performed and used in the interpretation. Board Certified Radiologists. Accredited by the ACR and FDA. MAMMOGRAPHY IS VERY IMPORTANT TO YOUR HEALTH. THE CURRENT [place] [employer] GUIDELINES RECOMMENDS ANNUAL MAMMOGRAPHY BEGINNING AT AGE 40. THIS FACILITY UTILIZES A REMINDER SYSTEM TO ENSURE ALL PATIENTS RECEIVE REMINDER NOTIFICATIONS AT THE APPROPRIATE TIME BASED ON THE RECOMMENDATIONS OF THIS EXAM. Report Ordering Provider: Yovany Ivan FINAL REPORT Dictated: 12/09/2023 9:25 am Toy Coronado MD Signed (Electronic Signature): 12/09/2023 9:25 am Signed by: Toy Coronado MD Transcribed by: TRAVIS Technologist: DAVIDE Assessment: BI-RADS Category 2-Benign finding Recommendation: Normal interval follow-up Normal [facility] Family Medicine Office/Clini c Noteon 12-02-2023 Family Medicine Office/Clinic Note Family Medicine Office/Clinic Note Chief Complaint ear pain HPI Staff 57 year old female presents with bilateral ear pain and fullness, nausea for the past 2 months prescription ear drops History of Present Illness I have reviewed and verified the staff HPI to be accurate for this encounter. Portions of this record have been created with voice recognition software. Occasional wrong-word or ?khskq-t-fofd? substitutions may have occurred due to the inherent limitations of voice recognition software. 57-year-old female presents to community health care today with chief complaint of bilateral ear pain. Patient states that she has been dealing with left-sided ear discomfort x 2 months. States ear fullness and muffled hearing on the left states intermittent nausea R feels like her equilibrium is off only on occasion that is not constant. States just this morning the right ear started to bother her she is altered she has earwax buildup etc. States she always has some postnasal drip and nasal drainage does not take any allergy type medications for that but states it is always there. Denies any recent sore throat cough cold-like symptoms no fever chills or weakness. States that she has a friend who grew up with holistic medicine and would use candle to remove earwax from both of her ears. States that she has not had that done in quite some time has never required her ears to be flushed. Has never followed up with ENT in regards to this issue with her ears. She has no other concerns at this time. Review of Systems PHQ Score Initial Depression Screen Score: 0 SCORE ROS negative unless otherwise stated in HPI. Physical Exam Vitals & Measurements T: 36.9 ?C(Tympanic) HR: 78(Peripheral) BP: 120/85 SpO2: 99% HT: 66 in HT: 168 cm WT: 59 kg WT: 129.8 lb BMI: 20.9 General: Well developed, well nourished, in no acute distress Eyes: Bilateral conjunctiva within normal limits no injection Ears: There is a moderate amount of cerumen within the right ear canal however the right TM is fully visualized without erythema or bulging. There does appear to plead clear fluid behind the right TM consistent with an ear effusion. The left TM is clearly visualized slightly bulging with clear fluid behind it consistent with a left acute ear effusion no erythema. No concern for infection. Left external auditory canal is within normal limits no erythema edema or cerumen impaction. Nose: No deformity, discharge, inflammation, or lesions Mouth: Moist mucous membranes. Uvula is midline. No acute tonsillar erythema edema or exudate. No signs of peritonsillar abscess. No trismus or drooling. Neck: no adenopathy Lungs: Lung sounds are clear bilaterally. No wheezing rhonchi or crackles on exam. Cardio: S1, S2, regular rhythm. No murmurs gallops or rubs. Abdomen: not assessed Musculoskeletal: not assessed Extremity: not assessed Neurologic: not assessed Skin: not assessed Mental Status: Alert and oriented x3. Normal mood and affect Assessment/Plan I spoke with patient regards to treatment of bilateral acute ear effusion discussed treatment with Flonase nasal spray twice daily x 7 days duration. Patient states she highly dislikes taking Flonase nasal spray. I suggested taking ropb-hnq-scgcqor nasal decongestant however she states she also hates taking pills. Discussed that Flonase would be of her best benefit if she continues to have issues despite use of Flonase x 1 week that she may require referral to ENT and follow-up with PCP. Patient agrees and understands plan of care. I was able to use an ear curette to remove a moderate amount of cerumen which was soft and brown in color from the right external auditory canal. Patient tolerated well. 1. Acute effusion of both middle ears (H65.193: Other acute nonsuppurative otitis media, bilateral) Please follow-up with your primary care provider in 3 to 5 days. Contact their office tomorrow morning to schedule follow-up appointment. You were seen and evaluated in regards to Bilateral ear pain in which you have fluid behind both eardrums. This is termed an effusion of the ear. You are prescribed Flonase, 1 sprays in both nostrils twice daily over the next 7 days. Continue nasal decongestant as tolerated continue to monitor. You may return for any worsening or concerning symptoms. Pt agrees and understands plan of care. Follow-up With When Contact Information Shilpa Michelle DO, FAM Additional Instructions: Patient Education Otitis Media With Effusion, Adult Problem List/Past Medical History Ongoing Body aches Cervical radiculopathy Chronic back pain Constipation Dysphagia Fever Hypotension Loss of appetite for more than 2 weeks Smoker Historical No qualifying data Procedure/Surgical History EGD (10/27/2018), cervical fusion C5-6-7 and plate placed (08/12/2011), [place] filter (04/2009), Excisional biopsy of breast (01/2009), Lumpectomy of left breast (01/2009), Tubal ligation (1999). Medications F (more content not included)... Normal [facility] Comment on above: Result Comment: Elec tronically Signed By: Robinson Pederson PA-C\.br\Date and Time Signed: 12/02/23 21:33 EDT Ambulatory Visit Summaryon 0 12-01-2023 Ambulatory Visit Summary Ambulatory Visit Summary MINNA YI :1965 Visit Date:12/01/2023 Ambulatory Visit Instructions Your Diagnosis Acute effusion of both middle ears Your Care Team Attending Physician - Robinson Pederson PA-C Primary Care Physician - Shilpa Michelle DO RAFAEL DO, Itz Keane This Is Your Medications List fluticasone nasal (Flonase 0.05 mg/inh [place]) Contact prescribing physician if questions or concerns diazepam (Valium 5 mg Tab) loratadine (loratadine 10 mg oral capsule) Procedures Performed EGD (10/27/2018), cervical fusion C5-6-7 and plate placed (08/12/2011), [place] filter (04/2009), Excisional biopsy of breast (01/2009), Lumpectomy of left breast (01/2009), Tubal ligation (1999). Discharge Vitals Temperature (Tympanic) 36.9 ?C Heart Rate (Peripheral) 78 Blood Pressure 120/85 Height 168 cm Height 66 in Weight 59 kg Weight 129.8 lb BMI 20.9 What to do next Scheduled Follow-Up Appointments Friday 8:45 AM EDT Where: [facility] Medications What How Much When Why Instructions New fluticasone nasal (Flonase 0.05 mg/ inh [place]) 1 Sprays Nasal Inhalation 2 times a day Acute effusion of both middle ears Duration: 7 Days each nostril Pickup at [facility] Unchanged diazepam (Valium 5 mg Tab) 1 Tablets By Mouth Every day Anxiety Contact prescribing physician if questions or concerns Unchanged loratadine (loratadine 10 mg oral capsule) 1 Capsules By Mouth Every day Contact prescribing physician if questions or concerns Pharmacy Information [facility]: [address] [place] [id number] [phone] Allergies Bee Stings Latex (Burning, Itching, Rash) Problems Ongoing - Any problem that you are currently receiving treatment for. Body aches Cervical radiculopathy Chronic back pain Constipation Dysphagia Fever Hypotension Loss of appetite for more than 2 weeks Smoker Patient Survey You may receive a survey via text or e-mail asking about your office visit. Please share your experience with us by completing your survey. We appreciate your feedback and thank you for choosing us for your care. Normal [facility] CBC W Auto Differential pane l (Bld)on 07-10-2023 Basophils (Bld) [#/Vol] 0.05 10*3/uL <0.11 k/uL [facility] Basophils/100 WBC (Bld) 0.6 % [facility] Differential cell count method Nom (Bld) Auto [facility] Eosinophils (Bld) [#/Vol] 0.10 10*3/uL <0.46 k/uL [facility] [facility] Eosinophils/100 WBC (Bld) 1.1 % [facility] Erythrocyte distribution width (RBC) [Ratio] 12.9 % 11.5 - 15.0 % [facility] Hematocrit (Bld) [Volume fraction] 37.8 % 36.0 - 46.0 % [facility] Hemoglobin (Bld) [Mass/Vol] 13.0 g/dL 11.5 - 15.5 g/dL [facility] Immature granulocytes (Bld) [#/Vol] <0.10 k/uL [facility] Immature granulocytes/100 WBC (Bld) 0.2 % [facility] Lymphocytes (Bld) [#/Vol] 2.76 10*3/uL 1.00 - 4.00 k/uL [facility] Lymphocytes/100 WBC (Bld) 30.9 % [facility] MCH (RBC) [Entitic mass] 31.7 pg 26.0 - 34.0 pg [facility] MCHC (RBC) [Mass/Vol] 34.4 g/dL 30.5 - 36.0 g/dL [facility] MCV (RBC) [Entitic vol] 92.2 fL 80.0 - 100.0 fL [facility] Monocytes (Bld) [#/Vol] 0.77 10*3/uL <0.87 k/uL [facility] Monocytes/100 WBC (Bld) 8.6 % [facility] Neutrophils (Bld) [#/Vol] 5.24 10*3/uL 1.45 - 7.50 k/uL [facility] Neutrophils/100 WBC (Bld) 58.6 % [facility] Nucleated RBC (Bld) [#/Vol] <0.01 k/uL [facility] Nucleated RBC/100 WBC (Bld) [Ratio] 0.0 /100 WBC [facility] Platelet mean volume (Bld) [Entitic vol] 10.6 fL 9.0 - 12.7 fL [facility] Platelets (Bld) [#/Vol] 294 10*3/uL 150 - 400 k/uL [facility] RBC (Bld) [#/Vol] 4.10 10*6/uL 3.90 - 5.2 0 m/uL [facility] WBC (Bld) [#/Vol] 8.94 10*3/uL 3.70 - 11. 00 k/uL [facility] Basophils (Bld) [#/Vol] 0.05 10*3/uL Normal <0.11 [facility] Comment on above: Order Comment: Speci men Type: BLOOD SPECIMEN Ordering Facility: [facility] Address: [address] [place] [address] Performed By: #### 2 4323-8 #### [facility] CLIA [id number] [address] [place] [address] Basophils/100 WBC (Bld) 0.6 % Normal [facility] Comment on above: Order Comment: Speci men Type: BLOOD SPECIMEN Ordering Facility: [facility] Address: [address] [place] [address] Performed By: #### 2 4323-8 #### [facility] CLIA [id number] [address] [place] [address]3677 Differential cell count method Nom (Bld) Auto Normal [facility] Comment on above: Order Comment: Speci men Type: BLOOD SPECIMEN Ordering Facility: [facility] Address: [address] [place] [address] Performed By: #### 2 4323-8 #### [facility] CLIA [id number] [address] [place] [address]20[address] Eosinophils (Bld) [#/Vol] 0.10 10*3/uL Normal <0.46 [facility] Comment on above: Order Comment: Speci men Type: BLOOD SPECIMEN Ordering Facility: [facility] Address: [address] [place] [address] Performed By: #### 2 4323-8 #### [facility] CLIA [id number] [address] [place] [address] Eosinophils/100 WBC (Bld) 1.1 % Normal [facility] Comment on above: Order Comment: Speci men Type: BLOOD SPECIMEN Ordering Facility: [facility] Address: [address] [place] [address] Performed By: #### 2 4323-8 #### [facility] CLIA [id number] [address] [place] [address] Erythrocyte distribution width (RBC) [Ratio] 12.9 % Normal 11.5-15.0 [facility] Comment on above: Order Comment: Speci men Type: BLOOD SPECIMEN Ordering Facility: [facility] Address: [address] [place] [address] Performed By: #### 2 4323-8 #### [facility] CLIA [id number] [address] [place] [address]2379 Hematocrit (Bld) [Volume fraction] 37.8 % Normal 36.0-46.0 [facility] Comment on above: Order Comment: Speci men Type: BLOOD SPECIMEN Ordering Facility: [facility] Address: [address] [place] [address] Performed By: #### 2 4323-8 #### [facility] CLIA [id number] [address] [place] [address]262 Hemoglobin (Bld) [Mass/Vol] 13.0 g/dL Normal 11.5-15.5 [facility] Comment on above: Order Comment: Speci men Type: BLOOD SPECIMEN Ordering Facility: [facility] Address: [address] [place] [address] Performed By: #### 2 4323-8 #### [facility] CLIA [id number] [address] [place] [address] Immature granulocytes (Bld) [#/Vol] 10*3/uL Normal <0.10 [facility] Comment on above: Order Comment: Speci men Type: BLOOD SPECIMEN Ordering Facility: [facility] Address: [address] [place] [address] Performed By: #### 2 4323-8 #### [facility] CLIA [id number] [address] [place] [address]74 Immature granulocytes/100 WBC (Bld) 0.2 % Normal [facility] Comment on above: Order Comment: Speci men Type: BLOOD SPECIMEN Ordering Facility: [facility] Address: [address] [place] [address] Performed By: #### 2 4323-8 #### [facility] CLIA [id number] [address] [place] [address]10 Lymphocytes (Bld) [#/Vol] 2.76 10*3/uL Normal 1.00-4.00 [facility] Comment on above: Order Comment: Speci men Type: BLOOD SPECIMEN Ordering Facility: [facility] Address: [address] [place] [address] Performed By: #### 2 4323-8 #### [facility] CLIA [id number] [address] [place] [address] 29227 Lymphocytes/100 WBC (Bld) 30.9 % Normal [facility] Comment on above: Order Comment: Speci men Type: BLOOD SPECIMEN Ordering Facility: [facility] Address: [address] [place] [address] Performed By: #### 2 4323-8 #### [facility] CLIA [id number] [address] [place] [address] 36046 MCH (RBC) [Entitic mass] 31.7 pg Normal 26.0-34.0 [facility] Comment on above: Order Comment: Speci men Type: BLOOD SPECIMEN Ordering Facility: [facility] Address: [address] [place] [address] Performed By: #### 2 4323-8 #### [facility] CLIA [id number] [address] [place] [address] 69512 MCHC (RBC) [Mass/Vol] 34.4 g/dL Normal 30.5-36.0 [facility] Comment on above: Order Comment: Speci men Type: BLOOD SPECIMEN Ordering Facility: [facility] Address: [address] [place] [address] Performed By: #### 2 4323-8 #### [facility] CLIA [id number] [address] [place] [address]3228 MCV (RBC) [Entitic vol] 92.2 fL Normal 80.0-100.0 [facility] Comment on above: Order Comment: Speci men Type: BLOOD SPECIMEN Ordering Facility: [facility] Address: [address] [place] [address] Performed By: #### 2 4323-8 #### [facility] CLIA [id number] [address] [place] [address] 03273 Monocytes (Bld) [#/Vol] 0.77 10*3/uL Normal <0.87 [facility] Comment on above: Order Comment: Speci men Type: BLOOD SPECIMEN Ordering Facility: [facility] Address: [address] [place] [address] Performed By: #### 2 4323-8 #### [facility] CLIA [id number] [address] [place] [address] 13930 Monocytes/100 WBC (Bld) 8.6 % Normal [facility] Comment on above: Order Comment: Speci men Type: BLOOD SPECIMEN Ordering Facility: [facility] Address: [address] [place] [address] Performed By: #### 2 4323-8 #### [facility] CLIA [id number] [address] [place] [address] 82692 Neutrophils (Bld) [#/Vol] 5.24 10*3/uL Normal 1.45-7.50 [facility] Comment on above: Order Comment: Speci men Type: BLOOD SPECIMEN Ordering Facility: [facility] Address: [address] [place] [address] Performed By: #### 2 4323-8 #### [facility] CLIA [id number] [address] [place] [address] 97956 Neutrophils/100 WBC (Bld) 58.6 % Normal [facility] Comment on above: Order Comment: Speci men Type: BLOOD SPECIMEN Ordering Facility: [facility] Address: [address] [place] [address] Performed By: #### 2 4323-8 #### [facility] CLIA [id number] [address] [place] [address] Nucleated RBC (Bld) [#/Vol] 10*3/uL Normal <0.01 [facility] Comment on above: Order Comment: Speci men Type: BLOOD SPECIMEN Ordering Facility: [facility] Address: [address] [place] [address] Performed By: #### 2 4323-8 #### [facility] CLIA [id number] [address] [place] [address] Nucleated RBC/100 WBC (Bld) [Ratio] 0.0 /100 WBC Normal [facility] Comment on above: Order Comment: Speci men Type: BLOOD SPECIMEN Ordering Facility: [facility] Address: [address] [place] [address] Performed By: #### 2 4323-8 #### [facility] CLIA [id number] [address] [place] [address] 87543 Platelet mean volume (Bld) [Entitic vol] 10.6 fL Normal 9.0-12.7 [facility] Comment on above: Order Comment: Speci men Type: BLOOD SPECIMEN Ordering Facility: [facility] Address: [address] [place] [address] Performed By: #### 2 4323-8 #### [facility] CLIA [id number] [address] [place] [address] 13688 Platelets (Bld) [#/Vol] 294 10*3/uL Normal 150-400 [facility] Comment on above: Order Comment: Speci men Type: BLOOD SPECIMEN Ordering Facility: [facility] Address: [address] [place], [place] [address] Performed By: #### 2 4323-8 #### [facility] CLIA [id number] [address] [place] [address] 44331 RBC (Bld) [#/Vol] 4.10 10*6/uL Normal 3.90-5.20 [facility] Comment on above: Order Comment: Speci men Type: BLOOD SPECIMEN Ordering Facility: [facility] Address: [address] [place] [address] Performed By: #### 2 4323-8 #### [facility] CLIA [id number] [address] [place] [address] 57099 WBC (Bld) [#/Vol] 8.94 10*3/uL Normal 3.70-11.00 [facility] Comment on above: Order Comment: Speci men Type: BLOOD SPECIMEN Ordering Facility: [facility] Address: [address] [place] [address] Performed By: #### 2 4323-8 #### [facility] CLIA [id number] [address] [place] [address] 16693 CNOVSPon 07-10-2023 CNOVSP Visit (SP) Office ([place]) MINNA YI ([id number]) 1965 F Date Time Provider Department 07/10/23 3:15 PM YOVANY IVAN During your visit today, we recorded the following information about you: Temperature Pulse Respiration Blood pressure 97 degrees 89/minute 16/minute 137/73 Weight Height 61 kg 1.676 m Yovany Ivan MD 07/11/2023 8:37 AM Signed PATIENT NAME: Minna Yi DATE: 07/10/2023 PRIMARY CARE PHYSICIAN: Dr. Hall OTHER PHYSICIANS: Dr. Galindo, Dr. De Guzman Portions of this encounter note have been copied from my note from 12/05/2022 and has been updated where appropriate, and reflect my current medical decision making from today. CC: This is a 57 year old female with a history of breast cancer, seen for scheduled follow-up. INTERIM HISTORY: Since the patient's last visit here she has had no significant medical changes. Her chronic neck and back pain persist and are unchanged. She has ongoing anxiety for which she takes Valium with improvement. No new complaints today. Recent left-sided mammogram 05/15/2023 stable. Bilateral mammogram at 6 months recommended. She has chronic discomfort in the left breast which is stable, otherwise no clinical changes. MEDICATIONS: diphenhydramine HCl (BENADRYL ALLERGY ORAL) Take by mouth. ALLERGIES: Latex PAST MEDICAL HISTORY: No past medical history on file. PAST SURGICAL HISTORY: No past surgical history on file. REVIEW OF SYSTEMS: GENERAL: No weight loss, malaise or fevers. HEENT: Negative for frequent or significant headaches, No changes in hearing or vision, no nose bleeds or other nasal problems RESPIRATORY: Negative for cough, wheezing or shortness of breath. CARDIOVASCULAR: Negative for chest pain, leg swelling or palpitations. GI: Negative for abdominal discomfort, blood in stools or black stools or change in bowel habits : No history of dysuria, frequency or incontinence MUSCULOSKELETAL: Negative for: joint pain or swelling, back pain and muscle pain SKIN: Negative for lesions, rash, and itching. HEMATOLOGY/LYMPHOLOGY: Negative for prolonged bleeding, bruising easily or swollen nodes. NEURO: No history of headaches, syncope, paralysis, seizures or tremors PHYSICAL EXAM: Vitals: BP 137/73 Pulse 89 Temp 36.1 ?C (97 ?F) (Temporal) Resp 16 Ht 167.6 cm (5' 5.98 ) Wt 61 kg (134 lb 7.7 oz) SpO2 98% BMI 21.72 kg/m? General appearance: well appearing, alert, in no acute distress, well-hydrated, well nourished Skin: skin color, texture, turgor normal, no suspicious rashes or lesions Head: normal Eyes: Anicteric sclera. Pupils are equally round and reactive to light. Extraocular movements are intact. Ears: negative findings: external ears normal to inspection and palpation Oropharynx: negative Neck: Supple, no adenopathy; thyroid symmetric, normal size Lymph Nodes: No Submandibular, cervical, supraclavicular, axillary, or inguinal lymphadenopathy present Breast: Well-healed left lumpectomy scar on the left with mild surrounding tenderness. Right breast normal. Back: no tenderness to palpation Lungs: clear to auscultation, no wheezing or rhonchi Heart: Negative. RRR without murmur, gallop, or rubs. No ectopy. Abdomen: Normal abdominal exam, Abdomen soft, non-tender. Bowel sounds normal. No masses, organomegaly Rectal: Not done Extremities: Extremities normal. No deformities, edema, or skin discoloration. Good capillary refill. Musculoskeletal: No joint swelling, deformity, or tenderness. Peripheral pulses: Normal PATHOLOGY: 07/04/2022 Breast, left, at 9:00, middle depth, calcifications, Top hat clip, stereotactic core biopsy: ---Benign breast parenchyma with stromal fibrosis. ---Microcalcifications are present within benign breast. LABORATORY DATA: Hemoglobin (g/dL) Date Value 07/10/2023 13.0 05/31/2021 13.7 Hematocrit (%) Date Value 07/10/2023 37.8 05/31/2021 41.0 WBC (k/uL) Date Value 07/10/2023 8.94 05/31/2021 9.01 Platelet Count (k/uL) Date Value 07/10/2023 294 05/31/2021 321 RADIOLOGY/OTHER STUDIES: 05/15/2023 Diagnostic left mammogram ([facility]) BI-RADS 3, probably benign. Short interval follow-up with bilateral mammogram at 6 months recommended. 01/03/2023 Bilateral diagnostic mammogram ([facility]) Benign findings. Normal interval follow-up. 06/11/2022 [facility] Mammogram interpretation The tissue in both breasts is extremely dense, which can decrease the sensitivity of the mammogram. There are no suspicious mammographic finding seen in the right breast, with overall pattern not significantly changed from 2018 exam. Stable postsurgical changes in the left breast. There are new coarse heterogeneous calcifications in the left breast at 9:00, middle depth, which stereotactic guided biopsy was recommended. Recommendation: 1. Stereotactic gu (more content not included)... Normal [facility] Cancer Ag27-29 SerPl-aCncon 07-10-2023 Cancer Ag 27-29 Qn 29.3 [arb'U]/mL Normal <38.6 [facility] Comment on above: Order Comment: Speci men Type: BLOOD SPECIMEN Ordering Facility: [facility] Address: [facility] [place] [address] Result Comment: The CA27.29 test was performed using the Siemens Centaur XP chemiluminometric immunoassay method. Results obtained with different assay methods or kits cannot be used interchangeably. Performed By: #### 1 7842-6 #### [facility] CLIA [id number] [address] [place] [address] [facility] Comprehensive metabolic 2000 panelon 07-10-2023 Albumin [Mass/Vol] 4.4 g/dL 3.9 - 4.9 g/dL [facility] ALP [Catalytic activity/Vol] 135 U/L High 34 - 123 U/L [facility] ALT [Catalytic activity/Vol] 25 U/L 7 - 38 U/L [facility] Anion gap [Moles/Vol] 10 mmol/L 9 - 18 mmol/L [facility] AST [Catalytic activity/Vol] 22 U/L 13 - 35 U/L [facility] Bilirubin [Mass/Vol] Low 0.2 - 1 .3 mg/dL [facility] Calcium [Mass/Vol] 10.2 mg/dL 8.5 - 10. 2 mg/dL [facility] Chloride [Moles/Vol] 101 mmol/L 97 - 10 5 mmol/L [facility] CO2 [Moles/Vol] 27 mmol/L 22 - 30 mmol/L [facility] Creatinine [Mass/Vol] 0.87 mg/dL 0.58 - 0.96 mg/dL [facility] Estimated Glomerular Filtration Rate 79 mL/min/1.73m >=60 mL/min/1.73m [facility] Glucose [Mass/Vol] 112 mg/dL High 74 - 99 mg/dL [facility] Potassium [Moles/Vol] 4.0 mmol/L 3.7 - 5.1 mmol/L [facility] Protein [Mass/Vol] 7.4 g/dL 6.3 - 8.0 g/dL [facility] Sodium [Moles/Vol] 138 mmol/L 136 - 144 mmol/L [facility] Urea nitrogen [Mass/Vol] 14 mg/dL 7 - 21 mg/dL [facility] Albumin [Mass/Vol] 4.4 g/dL Normal 3.9-4.9 [facility] Comment on above: Order Comment: Speci men Type: BLOOD SPECIMEN Ordering Facility: [facility] Address: [address] [place] [address] Performed By: #### 2 4323-8 #### [facility] CLIA [id number] [address] [place] [address] ALP [Catalytic activity/Vol] 135 U/L High 34-123 [facility] Comment on above: Order Comment: Speci men Type: BLOOD SPECIMEN Ordering Facility: [facility] Address: [address] [place] [id number] Performed By: #### 2 4323-8 #### [facility] CLIA [id number] [address] [place] [address] 41638 ALT [Catalytic activity/Vol] 25 U/L Normal 7-38 [facility] Comment on above: Order Comment: Speci men Type: BLOOD SPECIMEN Ordering Facility: [facility] Address: [address] [place], [place] [id number] Performed By: #### 2 4323-8 #### [facility] CLIA [id number] [address] [place] [address] 43572 Anion gap [Moles/Vol] 10 mmol/L Normal 9-18 [facility] Comment on above: Order Comment: Speci men Type: BLOOD SPECIMEN Ordering Facility: [facility] Address: [address] [place], [place] [id number] Performed By: #### 2 4323-8 #### [facility] CLIA [id number] [address] [place] [address] 27403 AST [Catalytic activity/Vol] 22 U/L Normal 13-35 [facility] Comment on above: Order Comment: Speci men Type: BLOOD SPECIMEN Ordering Facility: [facility] Address: [facility] [place] [phone] Performed By: #### 2 4323-8 #### [facility] CLIA [id number] [address] [place] [address] Bilirubin [Mass/Vol] mg/dL Low 0.2-1.3 [facility] Comment on above: Order Comment: Speci men Type: BLOOD SPECIMEN Ordering Facility: [facility] Address: [address] [place] [address] Performed By: #### 2 4323-8 #### [facility] CLIA [id number] [address] [place] [address]1633 Calcium [Mass/Vol] 10.2 mg/dL Normal 8.5-10.2 [facility] Comment on above: Order Comment: Speci men Type: BLOOD SPECIMEN Ordering Facility: [facility] Address: [address] [place] [id number] Performed By: #### 2 4323-8 #### [facility] CLIA [id number] [address] [place] [address] 66636 Chloride [Moles/Vol] 101 mmol/L Normal 97-105 [facility] Comment on above: Order Comment: Speci men Type: BLOOD SPECIMEN Ordering Facility: [facility] Address: [address] [place] [address] Performed By: #### 2 4323-8 #### [facility] CLIA [id number] [address] [place] [address]610 CO2 [Moles/Vol] 27 mmol/L Normal 22-30 [facility] Comment on above: Order Comment: Speci men Type: BLOOD SPECIMEN Ordering Facility: [facility] Address: [address] [place] [address] Performed By: #### 2 4323-8 #### [facility] CLIA [id number] [address] [place] [address]794 Creatinine [Mass/Vol] 0.87 mg/dL Normal 0.58-0.96 [facility] Comment on above: Order Comment: Speci men Type: BLOOD SPECIMEN Ordering Facility: [facility] Address: [address] [place] [phone] Performed By: #### 2 4323-8 #### [facility] CLIA [id number] [address] [place] [address]11 Creatinine and Glomerular filtration rate.predicted panel (S/P/Bld) 79 mL/min/1.73m??? Normal >=60 [facility] Comment on above: Order Comment: Shantelle roque Type: BLOOD SPECIMEN Ordering Facility: [facility] Address: [address] [place], [place] [id number] Result Comment: Elva mated Glomerular Filtration Rate (eGFR) is calculated using the 2020 CKD-EPI creatinine equation. This equation utilizes serum creatinine, sex, and age as parameters. The creatinine assay has traceable calibration to isotope dilution-mass spectrometry. Refer to KDIGO guidelines for clinical interpretation. In patients with unstable renal function, e.g. those with acute kidney injury, the eGFR may not accurately reflect actual GFR. Performed By: #### 2 4323-8 #### [facility] CLIA [id number] [address] [place] [address]206 Glucose [Mass/Vol] 112 mg/dL High 74-99 [facility] Comment on above: Order Comment: Shantelle roque Type: BLOOD SPECIMEN Ordering Facility: [facility] Address: [address] [place] [address] Result Comment: The [place] [employer] (ADA) provides guidance for cutoff values for fasting glucose and random glucose. The ADA defines fasting as no caloric intake for at least 8 hours. Fasting plasma glucose results between 100 to 125 mg/dL indicate increased risk for diabetes (prediabetes). Fasting plasma glucose results greater than or equal to 126 mg/dL meet the criteria for diagnosis of diabetes. In the absence of unequivocal hyperglycemia, results should be confirmed by repeat testing. In a patient with classic symptoms of hyperglycemia or hyperglycemic crisis, random plasma glucose results greater than or equal to 200 mg/dL meet the criteria for diagnosis of diabetes. Reference: Standards of Medical Care in Diabetes 2016, [place] [employer]. Diabetes Care. 2016.39(Suppl 1). Performed By: #### 2 4323-8 #### [facility] CLIA [id number] [address] [place] [address]84 Potassium [Moles/Vol] 4.0 mmol/L Normal 3.7-5.1 [facility] Comment on above: Order Comment: Shantelle roque Type: BLOOD SPECIMEN Ordering Facility: [facility] Address: [address] [place] [id number] Performed By: #### 2 4323-8 #### [facility] CLIA [id number] [address] [place] [address] Protein [Mass/Vol] 7.4 g/dL Normal 6.3-8.0 [facility] Comment on above: Order Comment: Speci men Type: BLOOD SPECIMEN Ordering Facility: [facility] Address: [address] [place] [address] Performed By: #### 2 4323-8 #### [facility] CLIA [id number] [address] [place] [address] Sodium [Moles/Vol] 138 mmol/L Normal 136-144 [facility] Comment on above: Order Comment: Speci men Type: BLOOD SPECIMEN Ordering Facility: [facility] Address: [address] [place] [address] Performed By: #### 2 4323-8 #### [facility] CLIA [id number] [address] [place] [address] Urea nitrogen [Mass/Vol] 14 mg/dL Normal 7-21 [facility] Comment on above: Order Comment: Speci men Type: BLOOD SPECIMEN Ordering Facility: [facility] Address: [address] [place] [address] Performed By: #### 2 4323-8 #### [facility] [place] [id number] [address] [place] [address] Physician Orderon 07-10-2023 Physician Order [id number] IFF [facility] Hamzah 06-09-2023 PRIMITIVO Telephone (HEMASA) MINNA YI ([id number]) 1965 F Date Time Provider Department 06/09/23 PAULIE ANTOINE During your visit today, we recorded the following information about you: Paulie Antoine RN 06/09/2023 3:53 PM Signed Pt requests refill of Diazepam. [facility] original prescriber. Paulie Antoine RN Allergies As of Date: 06/09/2023 Noted Allergy Reaction LATEX 06/01/2020 2 - Rash Date Reviewed: 07/12/2022 Reviewed by: Reece Russell APRN.PRODUCTION CONTROL EXPERT - Fully Assessed Reason for Visit: Diazepam [Other] Visit Diagnoses:Malignant neoplasm of upper-outer quadrant of left breast in female, estrogen receptor negative (HCC) [C50.412, Z17.1] Abnormal mammogram of left breast [R92.8] Order(s):diazePAM (VALIUM) 5 mg tabletTake 1 tablet by mouth every 6 hours as needed for up to 30 days.Disp: 50 tabletRfl: 1 Prescriptions as of 06/09/2023 - diazePAM (VALIUM) 5 mg tablet Take 1 tablet by mouth every 6 hours as needed for up to 30 days. - diphenhydramine HCl (BENADRYL ALLERGY ORAL) Take by mouth. Problem List As Of Date: 06/09/2023 (None) Prescriptions ordered this encounter Disp Refills Start End DIAZEPAM 5 MG TABLET 50 t* 1 06/09/2023 07/09/2023 Route: ORAL Sig: Take 1 tablet by mouth every 6 hours as needed for up to 30 days. Medications Discontinued During This Encounter Prescriptions - diazePAM (VALIUM) 5 mg tablet (Discontinued) Take 1 tablet by mouth every 6 hours as needed for up to 30 days. Encounter Status:Closed by YOVANY IVAN on 06/09/23 Normal [facility] Consent for Treatmenton Consent for Treatment [id number]#[id number] IFF Normal [facility] MA Mamm Diag w/CAD if perf a nd 3D LTon 05-15-2023 MA Mamm Diag w/CAD if perf and 3D LT Exam Date/Time: 05/15/2023 08:56 EST Reason for Exam: C50.412, Z17.1, R92.8 Report IMPRESSION: BIRADS 3 PROBABLY BENIGN, SHORT INTERVAL FOLLOW-UP.6 MONTH RECALL. FOLLOW-UP BILATERAL MAMMOGRAMS IN 6 MONTHS ARE RECOMMENDED. CLINICAL HISTORY: C50.412, Z17.1, R92.8. History of left breast cancer, with lumpectomy, radiation therapy, and chemotherapy. Stereotactic biopsy left breast 07/04/2022, with pathologic diagnosis of: benign breast parenchyma with stromal fibrosis. Microcalcifications are present within benign breast . COMPARISON: 01/03/2023. COMMENT: Routine views and tomosynthesis views and spot magnification compression views of the left breast were obtained. The left breast is extremely dense, which lowers the sensitivity of mammography. There is postsurgical architectural distortion and scarring and metallic surgical clip in the superior left breast. There is a small metallic stereotactic biopsy clip in the medial left breast, at mid depth at the level of the nipple. There are multiple calcifications in the medial left breast. Calcifications are variable in size and configuration and density, with many calcifications coarse and dense and others tiny or punctate. Many of the calcifications were present on the prior study, but there are calcifications that have developed in the interim since the prior exam. Calcifications are located in dense breast tissue, and no specific mass is delineated. In light of the pathologic findings noted on the stereotactic CT biopsy on 07/04/2022, a reasonable approach is to follow the calcifications. The examination was reviewed with Computer Aided Detection. Breast Density: Yes Mammography is very important to your health. The current [employer] and National Comprehensive Cancer Network guidelines recommends annual mammography beginning at age 40. This facility utilizes a reminder system to ensure all patients receive reminder notifications at the appropriate time based on the recommendations of this exam. Board Certified Radiologists. Accredited by the ACR and FDA. Report Ordering Provider: Yovany Ivan FINAL REPORT Dictated: 05/15/2023 3:41 pm Tristin Durham M.D. Signed (Electronic Signature): 05/15/2023 3:41 pm Signed by: Tristin Durham M.D. Transcribed by: TRAVIS Technologist: [facility] Assessment: BI-RADS Category 3-Probably benign - short interval follow-up Recommendation: Follow-up at short interval [facility] RAD - MISCon 05-15-2023 RAD - MISC [id number]#[id number] IFF Normal [facility] Physician Orderon 05-07-2023 Physician Order [id number]#[id number] IFF Normal [facility] Consent for Treatmenton 12-07 Consent for Treatment [id number]#1.00C D:127 Normal [facility] [place] Mamm Diag w/CAD if perf a nd 3D Bilon 01-03-2023 MA Mamm Diag w/CAD if perf and 3D Ozzy Exam Date/Time: 01/03/2023 09:42 EDT Reason for Exam: C50.412, Z17.1 Report IMPRESSION: BIRADS 2 BENIGN FINDINGS, NORMAL INTERVAL FOLLOW-UP Follow-up: 12 MONTH RECALL Density: Heterogeneously dense. Vascular calcifications: No. EXAM: MA Mamm Diag w/CAD if perf and 3D Ozzy DATE: 01/03/2023 9:23 AM CLINICAL HISTORY: C50.412, Z17.1. COMPARISONS: None available. TECHNIQUE: Routine full-field digital mammograms and 3D breast tomosynthesis of both breasts were obtained. FINDINGS: Interval biopsy marking clip adjacent to coarse calcifications within the medial left breast at a posterior depth. Stable postsurgical changes superiorly of the left breast. No other significant changes are identified from the prior studies, given differences in technique and positioning. Dense Breast: Yes. CAD analysis was performed and used in the interpretation. Board Certified Radiologists. Accredited by the ACR and FDA. MAMMOGRAPHY IS VERY IMPORTANT TO YOUR HEALTH. THE CURRENT [place] [employer] OF [employer] AND NATIONAL COMPREHENSIVE [employer]WORK GUIDELINES RECOMMENDS ANNUAL MAMMOGRAPHY BEGINNING AT AGE 40. THIS FACILITY UTILIZES A REMINDER SYSTEM TO ENSURE ALL PATIENTS RECEIVE REMINDER NOTIFICATIONS AT THE APPROPRIATE TIME BASED ON THE RECOMMENDATIONS OF THIS EXAM. Report Ordering Provider: Reece Russell FINAL REPORT Dictated: 01/03/2023 9:57 am Toy Coronado MD Signed (Electronic Signature): 01/03/2023 9:57 am Signed by: Toy Coronado MD Transcribed by: TRAVIS Technologist: DAVIDE Assessment: BI-RADS Category 2-Benign finding Recommendation: Normal interval follow-up Normal [facility] SURGICAL PATHOLOGYOrdered By : Maxim Rivera on 07-05-2022 Case Report Surgical Pathology Report Case: [id number] Authorizing Provider: Christina Rothman MD Collected: 07/04/2022 10:03 AM Ordering Location: Mammography Received: 07/04/2022 12:23 PM Pathologist: Maxim Rivera MD Specimen: BREAST CORE BIOPSY LEFT, Coarse heterogenous calcifications Left Breast, at 9:00 middle depth, Top Hat Clip [facility] Work Phone: FINAL DIAGNOSIS t2vxjJVyNUXktHKnBBTj NVx fdaCyZRDbrYQlK1UunrgoQV drIU4qMP7imUatxQOkiHRxB PZbAtEhm7lzm616vUZar8fi HUAZyxwvhQj2bMxzN41fi2L 1ZzdmK67rmPTmBPN4RUGuGV IpeLPfPZOjBKX3ULEhxGXwH 3ffKFJgXR1zzjnfGUgpCMdg DPWtkFE2SWSewZEtQ0EvHHT jOJquAXEokpc5BlZnGt3dcK VyeTcyMFxwYXJkXHBsYWluX QGmIlCzrNZfGMGmKW2tGiDa YGA8DSKyLYV2YJQqxXA1QxB wLCBtaWRkbGUgZGVwdGgsIG NekBYyAguwDOIwe32oAASHk 9DbjHG4BRLhfHQiMSL3CILz r2QfF6DoIkNae6UbDRVar4S zeTpccGFyXGIwXHBhciAtLS 2WZL2mQ57jXpGsAEI8VCAgg xInP2o2sSTkh5f7kCDjfULd zLUmCXTtEhZct4blWzhjVZG umXTiVT0mJB4eW8JjE3YyQ2 lmaWNhdGlvbnMgYXJlIHByZ JKirrRku4e5sJjtYMFkzvkl gnVbnlBxv7SsTHPyahlgYUE 9 [facility] Work Phone: Gross Description q4mooIXkJXAdtNTTRTIl MDR dBZ6urQxetMo0rDlxBREioi S1lIKuJTpla4nmZGE8z4hir iANClxkZWZmMVxwYXBlcncx RnM8VQajLUKflbmeYMl0IXx sTBNrdXV1DYDyyQImU8LmNY JrKS5cdco7GWH3APteEOPlU bR9ZKKbHsNeAmbaTFd0SJYd ipP7Nnn7RUIxFWOdmJKcd4X 5EMsqdjghHXXxvYSvA257RU tbq3VoqSWvJRpdjMYaGZXYA nkzZmvmsRkul8AosSTcYJjv ZHDnIZXlLPuqmqjnVSr2GOV yHKjhrBXpTJ9jhPzpSwtiwY btn5KbrZLpDMcjNWOlXJVsR PnrVNIlUA9QLyEvUNW7RNnc OdC2NgM4ZZi6MMFZFoAiAeY qHjphAAD0NCMpLAz8UIi7KB rSPiWmKPS6BJCvCcE3NDG5J Ht9GZPqNWCwQwJgBHDtNKFk JMonFMnasDYhVS5paOkgwHU kdxHULcUPYlRJF0VcA13OFX OEAN5KH4vlMEGFQShwSIAnA LvgNNUqT71hx7HOv9NrPC4V ZZl7pnOsyneagA9eLWRtvxG rOZywyFPdE3ydSrOkLTZKID KfgVCtYMSrulXgn2WrHOqik iBsYWJlbGVkIGFzIGBgbGVm dJKorkJsw4TcZ3U0KJpCUSC znqKriHDjoBxmvNHqz9RdlA DqxQPgu7XsL9xrxD7kaogeF DedxWagk8AuUMHsW9AvU7R9 uU4oVZNiYYKdEFB3DAVtJUV 4IDAuMyBjbSwgdGFuLXdoaX GoSTpkbJedxmBgchKdr1IkW WZou2K5BZFcCDTxsAKwFJY8 YOYiskGye4SkflF6BhZCwXN fe9HoU7gyDB7ho9HoROCpyW 17LCWrWdCjgPR2fFWxwAP5m VNayHXbwCZeNPpdLQTyz80z Cy4kGE4qNPXiPlNBvmH4tGH ey7PxFSIsBVkyEQVcDTKzsE QmxE5iajT7VVYurStvG3YiC EjbAGCnxc0jtEfjEKO6WYAd ZpUhNd0tRG18KMbysQDlqON qwHT7KZEdzA6nCl9lkCNntJ 2jlQ0zm50wKNZuq6GsgNJeK bYpgUKwRD3RQSCxqeEVYmlH QyBNYXJjaCAzMCwgMjAyMyA 1OjUwIFBNXHBhciANClxwYX DcXNxZpp2tyyVvzBXjmU8to AfizzEaRIDkw6FxQXCqWNXy I5tjrnCbCL0tURBurF3eJpq gOTUwMCBFdWNsaWQgQXZlLi gjY9msrmPvZF5uMENJVWH1V MH4AG0XTHTxaEJUYJP7VO2v XDt2XAxuEUWcS0CbD9WqtlJ tiZCgPGOhnkYnf4hwQPX0GP KlaPJbfKXuGlFfKdrtDVY9E RCfMFevWQ1TAILzHHA2QXca cQ83vPOgFR9SKATvWRkgDTS yQBTrhdM7MDFjrRSrDOE1GK 3emYslpMAopndyibS7WR2Nq Q== [facility] Work Phone: Performing Lab o9lobMChMAUilIKqGySr MDA zQRJyk1ouOQYwfJCsGtImFb NcZnRuYmpcdWMxXGRlZmYwe 8bub085zKKml4jmLCVsAtF1 kGKdTWJaeRTiJ858VZTiHVt eh1gjz9UdHUWiaAZaj0U4KY XIalrmrHn9eFzuH02rd3W3W sjoC4ehKALmNCQfR9FoCA4e VXUtJqe3JYO8MIR5TLItNIZ mF8YlAQ1hRCTguCAbBEu7q9 xpwRfoNUGzGWD9c1ffQYwwt zVkBP2kno7kwBz6w7rrhlTd NWLyWQXziAJQMFPkE7ZgeMj uUl5aiQm1gKqeMjadFZM1Wz j0BU3hgd13btw8lLetKVKri hweZsM0JFdfKVMbuunbRVu3 NJssTJRafRC2OOLlvPNrT1R eKYijEW8ipxc8CPF9MMeuLO OyFhJ6PKBefEUjFOCexVobN Luia841NKM3YkIeIV6oS2Vf d3M9vD2yfMJiEPHqqLOlHcI xNBJvab9peXQoAPrzu5DsDY U0jqZ2vTWuxJPqMYUyBC31W ehzn1EnEulwx3FgY95ovIH3 EQofx9rtSB1xRqT3rgEoKHe fk1xucL8cRjI9CHwzLN1sNR 9rXPDloY4ydrjkMLNkWjEde vvsEAOhhDzoeaQoUg1mzNtg YTF3QBwiO6yluA2pEaF5ARs sR9jtyR9bQEr5EMehhWV4GP YxvJ7oZK8zuyyda8hoTXmzM KccFYShgaS2poNhPIStwTAm L7TbwB2pHWXpRP7nnwkfj1k sBFC8GBdmDDBqJKT2KdXoLO Ebh2Lzexi1OsZlb4HgrZUuL EnhI09wz904QAXacoIiF9sq bGFpblxwbGFpblxmMFxmczI 0XHFsXHBsYWluXGYxXGZzMj JcbGFuZzEwMzNcaGljaFxmM KbzUdAiLZGwWDhsX0mjXqAa ZvMsOjGFcJIdji3glZgeYYf gxPDnqMDxeEF8gW2hRRYxcq Rcwx5eDTOhhMXJlKT1RQkmv hYuZ4llgiccEQN1WPIsQNJ1 V3emEGOXmlSxQNSeNWYfqMC lRKVTPVV3SWU0JTAgVVRNLH QlYYU6MKJ1JLHjKRTxzMIlP HBhclxwYXJkXHBsYWluXGYw LARsMiNioQtxuP6dTrTrYcW aChxtBS9gLKQwN9gvxVEkIA ZmFYKwH7wvUeMkpR1zfGiwD VxjZjJcZnMyMlxsdHJjaCBM NVUbbrO7h2Y2XVtdeDIcvpa mMVxmczIyXGxhbmcxMDMzXG moM4ezDcQxVRIeaKrnDQdko 7SgREQpNZHrGmCiKOfkIHA3 b2C2WVcknUAranGVRdFVFQ0 ofUGajiuyAI1ZTvfpFDT0 [facility] Work Phone: [facility] Work Phone: EMMA STEREO BX BREAST LTon EMMA STEREO BX BREAST LT * * *Final Report* * * * * * SEE BOTTOM OF REPORT FOR ADDENDED TEXT * * * DATE OF EXAM: Jul 04 2022 10:16AM [facility] 0630 - EMMA STEREO BX BREAST LT / PROCEDURE REASON: Breast calcifications on mammogram * * * * Physician Interpretation * * * * RESULT: FINAL REPORT #[id number] - EMMA STEREO BX BREAST LT STEREOTACTIC GUIDED BIOPSY LEFT BREAST USING VACUUM DEVICE WITH MARKING DEVICE INSERTED AND POST DIGITAL MAMMOGRAPHIC IMAGING AND RADIOGRAPHIC SPECIMEN IMAGIN07/04/2022 HISTORY: Breast Calcifications On Mammogram/ Left Breast Stereotactic Biopsy. /The patient presents for left stereotactic vacuum assisted needle biopsy as recommended from recent imaging study dated 05/28/2022 Pre and post fire mammographic images were obtained and stored in archive. PATIENT CONSENT: A time out was performed immediately prior to procedure start with the radiology team, correctly identifying the patient name, date of , procedure, anatomy (including marking of site and side), patient position, relevant diagnostic and radiology test results, safety precautions, and procedure-specific equipment needs. The procedure was explained to the patient including the risks, benefits and alternatives. Medications and allergies were also reviewed. The risks, including but not limited to infection and bleeding, were reviewed by the performing physician and the patient agreed to undergo the procedure. The radiologist and technologist were present throughout the entire procedure. Time out: 956 Procedure start: 956 Procedure end: 1003 Dr. Poole performed the entire procedure without an communications assistant. Correlation is made to exam dated: 05/28/2022 mammogram. A stereotactic guided biopsy was performed for the concerning area of calcifications located in the left breast at 9 o'clock middle depth. This was described on the previous mammography report. The skin was prepped in the usual manner. Local anesthetic was administered to the access site. The abnormality was approached from the medial aspect using a prone table. A 12 gauge biopsy needle was placed adjacent to the abnormality under computer guidance and confirmatory stereotactic mammography images were obtained to document needle placement. Once the needle was documented to be in the correct location, six specimens were obtained using a vacuum assisted device. The patient received additional local anesthetic during the procedure. A top hat clip was inserted into the biopsy cavity. A sterile dressing was applied to the access site. Post procedure digital mammographic imaging demonstrates the location device 1.4cm medial from the geometric center of the targeted area and complete removal of the calcifications. The specimens were sent to the laboratory for pathological analysis. IMPRESSION: STEREOTACTIC GUIDED BIOPSY BENIGN Stereotactic guided biopsy of the area of calcifications in the left breast at 9 o'clock middle depth with placement of a clip was successful with no apparent post procedure complications. The imaged specimens includes the calcifications. Pathology indicates benign finding with micro-calcifications present. Pathology results are concordant with mammography findings. A follow-up mammogram in 6 months is recommended to demonstrate stability. SUMMARY: AL DIAGNOSIS ? A. Breast, left, at 9:00, middle depth, calcifications, Top hat clip, stereotactic core biopsy: ? ---Benign breast parenchyma with stromal fibrosis. ? ---Microcalcifications are present within benign breast. These results were discussed with the patient on 07/05/2022. She will follow up with repeat imaging in six months. Short interval follow-up in 6 months is recommended to confirm stability as the calcifications were new from 05/24/2020 given the patient's history of breast cancer. Odette Poole M.D. pt/penrad:07/05/2022 14:58:25 Attending Technologist(s): Leslee Mcdonald RT(R)(M), [facility] Animal Care Provider(s): RT Jonelle(R)(M), [facility] Multiple national specialty organizations have released breast cancer screening guidelines for women at average risk for developing breast cancer - guidelines that are based on both evidence and opinion, yet differ on when to start and how often to screen for breast cancer. With representation from Breast Imaging, Internal Medicine, Women's Health, Family Medicine, and Medical/Surgical Oncology, the [facility] has carefully reviewed the data and reached the following consensus: 1) All women should engage in shared decision-making with their providers to decide when to start and how often to screen; 2) All women should have the opportunity to start screening mammography at age 40; 3) For women ages 45-55, we recommend annual screening mammograms; 4) For women ages 55 and over, we support both the transition from an annual to a biennial inter (more content not included)... Normal [facility] MG stereo Guidance for biops y of Breast - lefton 07-04-2022 Addendum by Provider , [facility] [place] on 07/05/2022 2:59 PM EDT * * *Final Report* * * * * * SEE BOTTOM OF REPORT FOR ADDENDED TEXT * * * DATE OF EXAM: Jul 04 2022 10:16AM [facility] 0630 - EMMA STEREO BX BREAST LT / PROCEDURE REASON: Breast calcifications on mammogram * * * * Physician Interpretation * * * * RESULT: FINAL REPORT #[id number] - EMMA STEREO BX BREAST LT STEREOTACTIC GUIDED BIOPSY LEFT BREAST USING VACUUM DEVICE WITH MARKING DEVICE INSERTED AND POST DIGITAL MAMMOGRAPHIC IMAGING AND RADIOGRAPHIC SPECIMEN IMAGIN07/04/2022 HISTORY: Breast Calcifications On Mammogram/ Left Breast Stereotactic Biopsy. /The patient presents for left stereotactic vacuum assisted needle biopsy as recommended from recent imaging study dated 05/28/2022 Pre and post fire mammographic images were obtained and stored in archive. PATIENT CONSENT: A time out was performed immediately prior to procedure start with the radiology team, correctly identifying the patient name, date of , procedure, anatomy (including marking of site and side), patient position, relevant diagnostic and radiology test results, safety precautions, and procedure-specific equipment needs. The procedure was explained to the patient including the risks, benefits and alternatives. Medications and allergies were also reviewed. The risks, including but not limited to infection and bleeding, were reviewed by the performing physician and the patient agreed to undergo the procedure. The radiologist and technologist were present throughout the entire procedure. Time out: 956 Procedure start: 956 Procedure end: 1003 Dr. Poole performed the entire procedure without an communications assistant. Correlation is made to exam dated: 05/28/2022 mammogram. A stereotactic guided biopsy was performed for the concerning area of calcifications located in the left breast at 9 o'clock middle depth. This was described on the previous mammography report. The skin was prepped in the usual manner. Local anesthetic was administered to the access site. The abnormality was approached from the medial aspect using a prone table. A 12 gauge biopsy needle was placed adjacent to the abnormality under computer guidance and confirmatory stereotactic mammography images were obtained to document needle placement. Once the needle was documented to be in the correct location, six specimens were obtained using a vacuum assisted device. The patient received additional local anesthetic during the procedure. A top hat clip was inserted into the biopsy cavity. A sterile dressing was applied to the access site. Post procedure digital mammographic imaging demonstrates the location device 1.4cm medial from the geometric center of the targeted area and complete removal of the calcifications. The specimens were sent to the laboratory for pathological analysis. IMPRESSION: STEREOTACTIC GUIDED BIOPSY BENIGN Stereotactic guided biopsy of the area of calcifications in the left breast at 9 o'clock middle depth with placement of a clip was successful with no apparent post procedure complications. The imaged specimens includes the calcifications. Pathology indicates benign finding with micro-calcifications present. Pathology results are concordant with mammography findings. A follow-up mammogram in 6 months is recommended to demonstrate stability. SUMMARY: AL DIAGNOSIS A. Breast, left, at 9:00, middle depth, calcifications, Top hat clip, stereotactic core biopsy: ---Benign breast parenchyma with stromal fibrosis. ---Microcalcifications are present within benign breast. These results were discussed with the patient on 07/05/2022. She will follow up with repeat imaging in six months. Short interval follow-up in 6 months is recommended to confirm stability as the calcifications were new from 05/24/2020 given the patient's history of breast cancer. Odette Poole M.D. pt/penrad:07/05/2022 14:58:25 Attending Technologist(s): Leslee Mcdonadl RT(R)(M), [facility] Animal Care Provider(s): Eneida Bello, (R)(M), [facility] Multiple national specialty organizations have released breast cancer screening guidelines for women at average risk for developing breast cancer - guidelines that are based on both evidence and opinion, yet differ on when to start and how often to screen for breast cancer. With representation from Breast Imaging, Internal Medicine, Women's Health, Family Medicine, and Medical/Surgical Oncology, the [facility] has carefully reviewed the data and reached the following consensus: 1) All women should engage in shared decision-making with their providers to decide when to start and how often to screen; 2) All women should have the opportunity to start screening mammography at age 40; 3) For w (more content not included)... [facility] Radiology Study observation (narrative) [facility] MG stereo Guidance for biops y of Breast - leftOrdered By: [facility] Provider on 07-04-2022 [facility] SURGICAL PATHOLOGYon 023 CASE REPORT Normal [facility] Comment on above: Order Comment: Speci men Type: TISSUE SPECIMEN Ordering Facility: [facility] Address: [address] [place] [id number] Result Comment: [facility]urg [facility] Pathology Report Case: [id number] Authorizing Provider: Christina Rothman MD Collected: 07/04/2022 10:03 AM Ordering Location: Mammography Received: 07/04/2022 12:23 PM Pathologist: Maxim Rivera MD Specimen: BREAST CORE BIOPSY LEFT, Coarse heterogenous calcifications Left Breast, at 9:00 middle depth, Top Hat Clip Performed By: #### S #### [facility] CLIA [id number] [address] [place] [address] FINAL DIAGNOSIS Normal [facility] Comment on above: Order Comment: Speci jude Type: TISSUE SPECIMEN Ordering Facility: [facility] Address: [address] [place] [address] Result Comment: A. Angela reast, left, at 9:00, middle depth, calcifications, Top hat clip, stereotactic core biopsy: ---Benign breast parenchyma with stromal fibrosis. ---Microcalcifications are present within benign breast. Performed By: #### S #### [facility] CLIA [id number] [address] [place] [address] FINAL PERFORMING LAB Normal [facility] Comment on above: Order Comment: Speci men Type: TISSUE SPECIMEN Ordering Facility: [facility] Address: [address] [place] [address] Result Comment: Diag nostic interpretation performed at [facility], [address] [place] [address] CLIA# [id number] Ash Handler: Stefan Mckay M.D. Performed By: #### S #### [facility] CLIA [id number] [address] [place] [address] GROSS DESCRIPTION Normal [facility] Comment on above: Order Comment: Speci men Type: TISSUE SPECIMEN Ordering Facility: [facility] Address: [address] [place] [address] Result Comment: A. B REAST CORE BIOPSY LEFT Received in formalin labeled as ``left breast? are multiple segments of cylindrical tissue aggregating to 1.5 x 1.5 x 0.3 cm, terry-white yellow and of a soft and rubbery consistency. The specimen was removed from the patient at 10: 03 on 07/04/2022. On the same day, the specimen was placed in formalin at 10: 06. Totally submitted in formalin in one cassette. [facility] July 04, 2022 5:50 PM Gross examination performed at [facility], [facility] [place] [address] Performed By: #### S #### [facility] CLIA [id number] [facility] [address]K [address] [place] CBC W Auto Differential pane l (Bld)on 06-06-2022 Basophils (Bld) [#/Vol] 0.04 10*3/uL <0.11 k/uL [facility] Basophils/100 WBC (Bld) 0.5 % [facility] Differential cell count method Nom (Bld) Auto [facility] Eosinophils (Bld) [#/Vol] 0.08 10*3/uL <0.46 k/uL [facility] Eosinophils/100 WBC (Bld) 1.0 % [facility] Erythrocyte distribution width (RBC) [Ratio] 12.6 % 11.5 - 15.0 % [facility] Hematocrit (Bld) [Volume fraction] 39.0 % 36.0 - 46.0 % [facility] Hemoglobin (Bld) [Mass/Vol] 13.1 g/dL 11.5 - 15.5 g/dL [facility] Immature granulocytes (Bld) [#/Vol] <0.10 k/uL [facility] Immature granulocytes/100 WBC (Bld) 0.2 % [facility] Lymphocytes (Bld) [#/Vol] 3.07 10*3/uL 1.00 - 4.00 k/uL [facility] Lymphocytes/100 WBC (Bld) 38.1 % [facility] MCH (RBC) [Entitic mass] 31.3 pg 26.0 - 34.0 pg [facility] MCHC (RBC) [Mass/Vol] 33.6 g/dL 30.5 - 36.0 g/dL [facility] MCV (RBC) [Entitic vol] 93.1 fL 80.0 - 100.0 fL [facility] Monocytes (Bld) [#/Vol] 0.61 10*3/uL <0.87 k/uL [facility] Monocytes/100 WBC (Bld) 7.6 % [facility] Neutrophils (Bld) [#/Vol] 4.24 10*3/uL 1.45 - 7.50 k/uL [facility] Neutrophils/100 WBC (Bld) 52.6 % [facility] Nucleated RBC (Bld) [#/Vol] <0.01 k/uL [facility] Nucleated RBC/100 WBC (Bld) [Ratio] 0.0 /100 WBC [facility] Platelet mean volume (Bld) [Entitic vol] 10.7 fL 9.0 - 12.7 fL [facility] Platelets (Bld) [#/Vol] 281 10*3/uL 150 - 400 k/uL [facility] RBC (Bld) [#/Vol] 4.19 10*6/uL 3.90 - 5.2 0 m/uL [facility] WBC (Bld) [#/Vol] 8.06 10*3/uL 3.70 - 11. 00 k/uL [facility] Comprehensive metabolic 2000 panelon 06-06-2022 Albumin [Mass/Vol] 4.7 g/dL 3.9 - 4.9 g/dL [facility] ALP [Catalytic activity/Vol] 110 U/L 34 - 123 U/L [facility] ALT [Catalytic activity/Vol] 15 U/L 7 - 38 U/L [facility] Anion gap [Moles/Vol] 9 mmol/L 9 - 18 mmol/L [facility] AST [Catalytic activity/Vol] 15 U/L 13 - 35 U/L [facility] Bilirubin [Mass/Vol] 0.2 mg/dL 0.2 - 1 .3 mg/dL [facility] Calcium [Mass/Vol] 10.2 mg/dL 8.5 - 10. 2 mg/dL [facility] Chloride [Moles/Vol] 99 mmol/L 97 - 10 5 mmol/L [facility] CO2 [Moles/Vol] 29 mmol/L 22 - 30 mmol/L [facility] Creatinine [Mass/Vol] 0.84 mg/dL 0.58 - 0.96 mg/dL [facility] Estimated Glomerular Filtration Rate 83 mL/min/1.73m >=60 mL/min/1.73m [facility] Glucose [Mass/Vol] 105 mg/dL High 74 - 99 mg/dL [facility] Potassium [Moles/Vol] 4.1 mmol/L 3.7 - 5.1 mmol/L [facility] Protein [Mass/Vol] 7.7 g/dL 6.3 - 8.0 g/dL [facility] Sodium [Moles/Vol] 137 mmol/L 136 - 144 mmol/L [facility] Urea nitrogen [Mass/Vol] 10 mg/dL 7 - 21 mg/dL [facility] Vital Signs Date Time Vital Sign Value Performing Clinician Facility 01-08-2024 15:12-0400 Body height 167.6 cm Yovany Ivan MD Work Phone: [facility] 01-08-2024 15:12-0400 Body mass index (BMI) [Ratio] 21.36 kg/m2 Yovany Ivan MD Work Phone: [facility] 01-08-2024 15:12-0400 Body temperature 97.7 [degF] Yovany Ivan MD Work Phone: [facility] 01-08-2024 15:12-0400 Body weight 60 kg Yovany Ivan MD Work Phone: [facility] 01-08-2024 15:12-0400 Diastolic blood pressure 76 mm[Hg] Yovany Ivan MD Work Phone: [facility] 01-08-2024 15:12-0400 Heart rate 80 /min Yovany Ivan MD Work Phone: [facility] 01-08-2024 15:12-0400 Respiratory rate 16 /min Yovany Ivan MD Work Phone: [facility] 01-08-2024 15:12-0400 SaO2% (BldA) [Mass fraction] 97 % Yovany Ivan MD Work Phone: [facility] 01-08-2024 15:12-0400 Systolic blood pressure 129 mm[Hg] Yovany Ivan MD Work Phone: [facility] 12-01-2023 15:53-0400 Blood Pressure Location Robinson Pederson [facility] 12-01-2023 15:53-0400 Body temperature 98.42 [degF] Robinson Pederson [facility] 12-01-2023 15:53-0400 Diastolic blood pressure 85 mm[Hg] Robinson Pederson [facility] 12-01-2023 15:53-0400 Heart rate 78 /min Robinson Pederson [facility] 12-01-2023 15:53-0400 SaO2% (BldA) [Mass fraction] 99 % Robinson Pederson [facility] 12-01-2023 15:53-0400 Systolic blood pressure 120 mm[Hg] Robinson Pederson [facility] 07-10-2023 14:55-0400 Body height 167.6 cm Yovany Ivan MD Work Phone: [facility] 07-10-2023 14:55-0400 Body temperature 97 [degF] Yovany Ivan MD Work Phone: [facility] 07-10-2023 14:55-0400 Body weight 61 kg Yovany Ivan MD Work Phone: [facility] 07-10-2023 14:55-0400 Diastolic blood pressure 73 mm[Hg] Yovany Ivan MD Work Phone: [facility] 07-10-2023 14:55-0400 Heart rate 89 /min Yovany Ivan MD Work Phone: [facility] 07-10-2023 14:55-0400 Respiratory rate 16 /min Yovany Ivan MD Work Phone: [facility] 07-10-2023 14:55-0400 SaO2% (BldA) [Mass fraction] 98 % Yovany Ivan MD Work Phone: [facility] 07-10-2023 14:55-0400 Systolic blood pressure 137 mm[Hg] Yovany Ivan MD Work Phone: [facility] 12-05-2022 14:44-0400 Body height 167.6 cm Yovany Ivan MD Work Phone: [facility] 12-05-2022 14:44-0400 Body temperature 97.39 [degF] Yovany Ivan MD Work Phone: [facility] 12-05-2022 14:44-0400 Body weight 56.16 kg Yovany Ivan MD Work Phone: [facility] 12-05-2022 14:44-0400 Diastolic blood pressure 84 mm[Hg] Yovany Ivan MD Work Phone: [facility] 12-05-2022 14:44-0400 Heart rate 97 /min Yovany Ivan MD Work Phone: [facility] 12-05-2022 14:44-0400 Respiratory rate 16 /min Yovany Ivan MD Work Phone: [facility] 12-05-2022 14:44-0400 SaO2% (BldA) [Mass fraction] 100 % Yovany Ivan MD Work Phone: [facility] 12-05-2022 14:44-0400 Systolic blood pressure 129 mm[Hg] Yovany Ivan MD Work Phone: [facility] 06-06-2022 14:16-0500 Body height 167.6 cm Yovany Ivan MD Work Phone: [facility] 06-06-2022 14:16-0500 Body temperature 97.59 [degF] Yovany Ivan MD Work Phone: [facility] 06-06-2022 14:16-0500 Body weight 52.07 kg Yovany Ivan MD Work Phone: [facility] 06-06-2022 14:16-0500 Diastolic blood pressure 65 mm[Hg] Yovany Ivan MD Work Phone: [facility] 06-06-2022 14:16-0500 Heart rate 91 /min Yovany Ivan MD Work Phone: [facility] 06-06-2022 14:16-0500 Respiratory rate 16 /min Yovany Ivan MD Work Phone: [facility] 06-06-2022 14:16-0500 SaO2% (BldA) [Mass fraction] 99 % Yovany Ivan MD Work Phone: [facility] 06-06-2022 14:16-0500 Systolic blood pressure 111 mm[Hg] Yovany Ivan MD Work Phone: [facility] 02-04-2022 16:24-0400 Blood Pressure Location Itz HALL [facility] 02-04-2022 16:24-0400 Body temperature 97.16 [degF] Itz HALL [facility] 02-04-2022 16:24-0400 Diastolic blood pressure 68 mm[Hg] Itz HALL [facility] 02-04-2022 16:24-0400 Heart rate 114 /min Itz HALL [facility] 02-04-2022 16:24-0400 SaO2% (BldA) [Mass fraction] 99 % Itz HALL [facility] 02-04-2022 16:24-0400 Systolic blood pressure 118 mm[Hg] Itz HALL [facility] Encounters Encounter Date Encounter Type Care Provider Facility Start: 02-16-2024 End: 02-16-2024 ambulatory BERNARDO TERRAZASS Not Available Start: 02-13-2024 End: 02-13-2024 Clinical Support Yajaira Louis [facility] Work Phone: [facility] Comment on above: 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); Dysfunction of right eustachian tube; Left otitis media, unspecified otitis media type Start: 02-13-2024 End: 02-13-2024 Bamboo flowsheet Yajaira Hernandezill CCC-A Work Phone: [facility] Start: 02-13-2024 End: 02-13-2024 Bamboo flowsheet Yajaira Gu [facility] Work Phone: [facility] Start: 01-23-2024 End: 01-25-2024 Refill Yovany Ivan MD Work Phone: Hematology/Oncology Comment on above: Refill Request Start: 01-08-2024 End: 01-08-2024 Patient encounter procedure Yovany Ivan MD Work Phone: Hematology/Oncology Start: 01-08-2024 End: 01-08-2024 ambulatory ITZ HALL Facility:[facility] Comment on above: Malignant neoplasm o f upper-outer quadrant of left breast in female, estrogen receptor negative (HCC) (Primary Dx); Anxiety Start: 01-08-2024 End: 01-08-2024 Telephone encounter Yovany Ivan MD Work Phone: [facility] Comment on above: Change Of Order Start: 12-22-2023 End: 12-22-2023 ambulatory BERNARDO TERRAZASS Not Available Start: 12-09-2023 End: 12-09-2023 ambulatory Yovany Ivan Facility:[facility] Start: 12-09-2023 End: 12-09-2023 Patient encounter procedure Yovany Ivan [facility] Start: 12-01-2023 End: 12-01-2023 ambulatory Robinson Pederson Facility:[facility] Start: 12-01-2023 End: 12-01-2023 Patient encounter procedure Robinson Pederson [facility] Start: 07-10-2023 End: 07-10-2023 Patient encounter procedure Yovany Ivan MD Work Phone: [facility] Start: 07-10-2023 End: 07-10-2023 ambulatory Yovany Ivan MD Work Phone: Hematology/Oncology Comment on above: Malignant neoplasm o f upper-outer quadrant of left breast in female, estrogen receptor negative (HCC) (Primary Dx); Anxiety; Chronic back pain, unspecified back location, unspecified back pain laterality Start: 06-09-2023 Telephone encounter Paulie Moctezuma Hematology/Oncology Comment on above: Diazepam Start: 05-15-2023 End: 05-15-2023 ambulatory Yovany Ivan Facility:[facility] Start: 05-15-2023 End: 05-15-2023 Patient encounter procedure Yovany Ivan [facility] Start: 01-03-2023 End: 01-03-2023 ambulatory Reece Russell Facility:[facility] Start: 01-03-2023 End: 01-03-2023 Patient encounter procedure Reece Russell [facility] Start: 12-05-2022 End: 12-05-2022 ambulatory Yovany Ivan MD Work Phone: Hematology/Oncology Comment on above: Malignant neoplasm o f upper-outer quadrant of left breast in female, estrogen receptor negative (HCC) (Primary Dx); Abnormal mammogram of left breast; Anxiety Start: 12-05-2022 End: 12-05-2022 Patient encounter procedure Yovany Ivan MD Work Phone: [facility] Start: 12-05-2022 Telephone encounter Yovany wheatley MD Work Phone: [facility] Comment on above: Orders Start: 12-02-2022 Telephone encounter Gunjan Segura RN Work Phone: Hematology/Oncology Comment on above: Question Start: 07-12-2022 Telephone encounter Rossana Hawkins RN Hematology/Oncology Comment on above: Orders Start: 07-04-2022 ambulatory UNKNOWN PROVIDER Facili ty:[facility] Start: 07-04-2022 End: 07-04-2022 Subsequent hospital visit by physician Procedure Mammo [facility] Work Phone: Mammography Comment on above: Breast calcification s on mammogram [R92.1] Start: 06-24-2022 Telephone encounter Aisha gracia RN Work Phone: Hematology/Oncology Comment on above: Breast Problem Start: 06-11-2022 Telephone encounter Kristal Melendez RN Hematology/Oncology Comment on above: Results Start: 06-10-2022 Refill Bibi Mai [facility] Work Phone: [facility] Comment on above: Refill Request Results Start: 06-06-2022 End: 06-06-2022 ambulatory Yovany Ivan MD Work Phone: Hematology/Oncology Comment on above: Malignant neoplasm o f upper-outer quadrant of left breast in female, estrogen receptor negative (HCC) (Primary Dx); Anxiety Start: 06-06-2022 End: 06-06-2022 Patient encounter procedure Yovany Ivan MD Work Phone: [facility] Start: 02-04-2022 End: 02-04-2022 Patient encounter procedure Itz HALL [facility] Start: 08-31-2021 Refill Yovany Ivan MD Work Phone: Hematology/Oncology Comment on above: Refill Request Procedures Date Procedure Procedure Detail Performing Clinician Start: 02-13-2024 AUDITORY FUNCTION TESTS Yajaira Louis CCC-A Work Phone: Start: 07-04-2022 Bx breast w/device 1st lesion stereotactic guid Christina Rothman MD Work Phone: Start: 07-04-2022 Level iv surg pathology gross&microscopic exam Christina Rothman MD Work Phone: Start: 06-01-2020 Adult depression screening assessment Yovany Ivan MD Work Phone: Start: 10-27-2018 Esophagogastroduodenoscopy Itz HALL Start: 08-12-2011 cervical fusion C5-6-7 and plate placed Itz HALL Start: 04-07-2009 [place] filter, device (physical object) Itz HALL Start: 01-05-2009 Excisional biopsy of breast Itz Funez Comment on above: left Start: 01-05-2009 Lumpectomy of left breast Itz HALL Comment on above: w/ sentinel node biopsy Start: 04-07-1999 Ligation of fallopian tube Itz HALL Plan of Treatment Date Care Activity Detail Author Start: 01-07-2027 [facility] Start: 07-09-2026 [facility] Start: 06-06-2025 DIABETES SCREEN DIABETES SCREEN [facility] Start: 06-06-2025 [facility] Start: 01-06-2025 End: 01-06-2025 Follow-up encounter 01/06/2025 3:00 PM EDT Visit (SP) Office Hematology/Oncology [address] [place] [address] Reece Russell APRN.[employer]ODUCTION [employer]ERT [address] [place] [address] 1 YEAR FOLLOW UP - ok for mid level to see, BRM pt Hematology/Oncology Comment on above: 1 YEAR FOLLOW UP - o k for mid level to see, BRM pt Start: 01-06-2025 End: 01-06-2025 Patient encounter procedure 01/06/2025 2:45 PM EDT Office Visit [facility] [address] [place] [address] 1 YEAR FOLLOW UP [facility] Comment on above: 1 YEAR FOLLOW UP Start: 05-31-2024 DIABETES SCREEN DIABETES SCREEN [facility] Start: 02-16-2024 End: 02-16-2024 Patient encounter procedure 02/16/2024 3:50 PM EST Office Visit [facility] [address] [place] [id number] Bernardo Hollins MD [address] [place] [address] ANA M BRIAN JORDAN Start: 02-13-2024 End: 02-13-2024 Clinical Support 02/13/2024 3:00 PM EST Clinical Support [facility] [address] [place] [address] Yajaira Louis, [facility] [address] [place] [address] Arrived [facility] Comment on above: Arrived Start: 01-08-2024 End: 01-08-2024 Follow-up encounter 01/08/2024 3:15 PM EDT Visit (SP) Office Hematology/Oncology [address] [place] [address] Yovany Ivan MD [address] [place] [address] 6 month lab follow up Hematology/Oncology Comment on above: 6 month lab follow u p Start: 01-08-2024 End: 01-08-2024 Patient encounter procedure 01/08/2024 3:00 PM EDT Office Visit [facility] [address] [place] [address] 6 month lab follow up [facility] Comment on above: 6 month lab follow u p Start: 12-07-2023 Covid-19 Vaccine ( season) Covid-19 Vaccine ( season) [facility] Start: 12-07-2023 Influenza vaccination [facility] Start: 07-10-2023 End: 10-09-2023 Cancer Ag 27-29 [Units/volume] in Serum or Plasma [facility] Work Phone: Comment on above: Expected: 07/10/2023 , Expires: 10/09/2023 Start: 04-07-2023 Behavioral Health Screening Behavioral Health Screening [facility] Start: 04-07-2023 Depression Assessment Depression Ass essment [facility] Start: 12-06-2022 Covid-19 Vaccine () Covid-19 Vaccine () [facility] Start: 12-06-2022 Influenza vaccination C [facility] Start: 06-06-2022 End: 08-06-2022 Cancer Ag 27-29 [Units/volume] in Serum or Plasma [facility] Work Phone: Comment on above: Expected: 06/06/2022 , Expires: 08/06/2022 Start: 04-07-2022 [facility] Start: 12-06-2021 Influenza vaccination C [facility] Start: 06-01-2021 Adult depression screening assessment DEPRESSION SCREENING [facility] Start: 12-15-2017 SHINGRIX VACCINE (1 of 2) SHINGRIX VACCINE (1 of 2) [facility] Start: 12-15-2012 COLOGUARD (FIT-DNA) COLOGUARD (FIT-D NA) [facility] Start: 12-15-2012 Colonoscopy COLONOSCOPY [facility] Start: 12-15-2012 COLORECTAL CANCER SCREENING COLORECTAL CANCER SCREENING [facility] Start: 12-15-[address] COLONOGRAPHY [facility] Start: 12-15-2012 FECAL OCCULT BLOOD FECAL OCCULT BLOO D [facility] Start: 12-15-2012 Lipid 1996 panel - S pura or Plasma Lipid Screening [facility] Start: 12-15-2012 Lipid panel Lipid Screening [facility] Start: 12-15-2012 LIPID SCREEN LIPID SCREEN [facility] Start: 12-15-2012 Screening for malign ant neoplasm of colon [facility] Start: 12-15-2012 SIGMOIDOSCOPY SIGMOIDOSCOPY [facility] Start: 2007 Mammography [facility] Start: 2007 Screening for malign ant neoplasm of breast Mammogram Screening [facility] Start: 12-15-1997 HPV TESTING HPV TESTING [facility] Start: 12-15-1997 Screening for malign ant neoplasm of cervix HPV Testing [facility] Start: 12-15-1988 PAP TESTING PAP TESTING [facility] Start: 12-15-1988 Screening for malign ant neoplasm of cervix [facility] Start: 12-15-1986 Hepatitis B Vaccine (1 of 3 - 19+ 3-dose series) Hepatitis B Vaccine (1 of 3 - 19+ 3-dose series) [facility] Start: 12-15-1986 Urine microalbumin profile [facility] Start: 12-15-1985 Anxiety Screening Anxiety Screening [facility] Start: 12-15-1985 Depression Screening Depression Scre ening [facility] Start: 12-15-1985 HEPATITIS C SCREENING HEPATITIS C [facility] Start: 12-15-1985 Hepatitis C screening Hepatitis C [facility] Start: 12-15-1985 HIV SCREENING HIV SCREENING [facility] Start: 12-15-1985 HIV screening HIV Screening [facility] Start: 12-15-1973 PNEUMOCOCCAL (1 - PCV) PNEUMOCOCCAL (1 - PCV) [facility] Start: 12-15-1973 Pneumococcal vaccination [facility] Start: 12-15-1972 COVID-19 VACCINE (#1) COVID-19 VACCI NE (#1) [facility] Start: 06-14-1968 COVID-19 VACCINE (#1) COVID-19 VACCI NE (#1) [facility] Start: 1967 HEPATITIS B (1 of 3 - 3-dose series) HEPATITIS B (1 of 3 - 3-dose series) [facility] Start: 1967 Hepatitis B Vaccine (1 of 3 - 3-dose series) Hepatitis B Vaccine (1 of 3 - 3-dose series) [facility] End: 07-11-2023 Bx breast w/device 1st lesion ultrasound guid US BIOPSY BREAST LT Radiology Routine Abnormal mammogram of left breast 1 Occurrences starting 06/11/2022 until 07/11/2023 [facility] Work Phone: Comment on above: 1 Occurrences starti ng 06/11/2022 until 07/11/2023 End: 02-06-2025 DBT Breast - bilateral screening EMMA SCREENING W SIRISHA Radiology Routine Malignant neoplasm of upper-outer quadrant of left breast in female, estrogen receptor negative (HCC) 1 Occurrences starting 01/08/2024 until 02/06/2025 [facility] Work Phone: Comment on above: 1 Occurrences starti ng 01/08/2024 until 02/06/2025 End: 08-11-2023 EMMA DIAGNOSTIC BILATERAL EMMA DIAGNOSTIC BILATERAL Radiology Routine Malignant neoplasm of upper-outer quadrant of left breast in female, estrogen receptor negative (HCC) 1 Occurrences starting 07/12/2022 until 08/11/2023 [facility] Work Phone: Comment on above: 1 Occurrences starti ng 07/12/2022 until 08/11/2023 End: 01-04-2024 EMMA DIAGNOSTIC LEFT EMMA DIAGNOSTIC LEFT Radiology Routine Malignant neoplasm of upper-outer quadrant of left breast in female, estrogen receptor negative (HCC) Abnormal mammogram of left breast 1 Occurrences starting 12/05/2022 until 01/04/2024 [facility] Work Phone: Comment on above: 1 Occurrences starti ng 12/05/2022 until 01/04/2024 End: 08-08-2024 MG Breast - bilateral Diagnostic EMMA DIAGNOSTIC BILATERAL Radiology Routine Malignant neoplasm of upper-outer quadrant of left breast in female, estrogen receptor negative (HCC) 1 Occurrences starting 07/10/2023 until 08/08/2024 [facility] Work Phone: Comment on above: 1 Occurrences starti ng 07/10/2023 until 08/08/2024 [facility] Immunizations Immunization Date Immunization Notes Care Provider Andrey fofana 01-01-2013 influenza virus vaccine, unspecified formulation Robinson Pederson [facility] 01-10-2012 influenza virus vaccine, unspecified formulation Robinson Pederson [facility] Payers Date Payer Category Payer Private Health Insurance [employer] [id number] 2018 Unknown MMO [employer] [id number] 2018-Present [phone] [address] [place] [address] PPO [id number] 2018 Unknown MMO [employer] [id number] 2018-Present [phone] [address] [place] [address] PPO [id number] 2018 Unknown [id number] 1967 Unknown [id number] 1967 Unknown [id number] 1967 Unknown [id number] 1967 Unknown [id number] 1967 Unknown [id number] [id number] 1967 Unknown [id number] [id number] 1967 Unknown [id number] 1259 1967 Unknown [id number] [id number] Social History Date Type Detail Facility Start: 06-01-2020 End: 12-18-2023 Tobacco smoking status SCIS Smokes tobacco daily [facility] History [facility] tobacco use [facility] Start: 06-01-2020 End: 12-22-2023 Cigarettes smoked current (pack per day) - Reported 0.25 [facility] Start: 06-01-2020 End: 12-18-2023 Tobacco use and exposure Smokeless tobacco non-user [facility] Start: 05-31-2021 End: 01-08-2024 Alcohol intake Current drinker of alcohol (finding) [facility] Start: 1965 Sex Assigned At Not on file [facility] Start: 02-04-2022 Tobacco smoking status Heavy t obacco smoker (finding) [facility] Comment on above: 04/08 ppd Tobacco smoking status Never [facility] Comment on above: 04/08 ppd Start: 05-31-2021 End: 12-22-2023 Sex Assigned At Female [facility] Start: 12-22-2023 Alcoholic beverage intake Ex-drinker (finding) [facility] Functional Status Date Assessment Result Facility 12-01-2023 Functional Status N/A [facility] 02-04-2022 Functional Status N/A [facility] Clinical Notes 08-31-2021 to 02-13-2024 Yajaira Louis, CCC-A - 02/13/2024 3:00 PM ESTTelephone Encounter - Johnny Wright - 01/08/2024 5:01 PM EDTTelephone Encounter - Johnny Wright - 01/08/2024 5:01 PM EDTRadiologyRadiologyRadiology Note Date & Type Note Facility 02-13-2024 History of Present illness Narrative History: Pt was referred to ENT because of ear problems. She was diagnosed with left OM at last ENT appointment in December. Pt has difficulty hearing in both ears, much worse in her left ear. She does not think her left ear is any better. Pt also reports periodic left ear pain and left tinnitus. Pt denies excessive exposure to noise. Otoscopic Exam: Ear canal clear and TM intact AU Pure Tone Audiometry Right Ear: Mild sensorineural hearing loss from 4K Hz - 6K Hz rising to normal hearing at 8K Hz Left Ear: Mild to severe conductive hearing loss above 500 Hz Speech Audiometry Right SRT = 15 dB and word discrimination score at 50 dBHL = 100% Left SRT = 40 dB and word discrimination score at 65 dBHL (masked) = 96% Tympanometry Right Ear: Type C tympanogram Left Ear: Type B tympanogram documented in this encounter [facility] 01-08-2024 Telephone encounter Note Faxed order to [facility] January 08, 2024 5:01 PM Johnny Wright [facility] 01-08-2024 Miscellaneous Notes Faxed order to [facility] January 08, 2024 5:01 PM Johnny Wright I will change the order from diagnostic to screening. Angela Malin Diagnosed in 2008. Patient is requesting if her Mammogram can be changed to Screening. She states when it's ordered Diagnostic she gets a big out of pocket costs from her insurance. If in agreement, can you please place an order for screening? Thank you! Johnny Wright documented in this encounter [facility] 01-08-2024 Telephone encounter Note I will change the order from diagnostic to screening. Angela Malin [facility] Work Phone: 01-08-2024 Telephone encounter Note Diagnosed in 2008. Patient is requesting if her Mammogram can be changed to Screening. She states when it's ordered Diagnostic she gets a big out of pocket costs from her insurance. If in agreement, can you please place an order for screening? Thank you! Johnny Wright [facility] 01-07-2024 Note HNO ID: [id number] Author: YOVANY IVAN MD Service: ? Author Type: Physician Type: Progress Notes Filed: 01/09/2024 06:09 Note Text: PATIENT NAME: Minna Yi DATE: 01/08/2024 PRIMARY CARE PHYSICIAN: Dr. Hall OTHER PHYSICIANS: Dr. Galindo, Dr. De Guzman Portions of this encounter note have been copied from my note from 07/10/2023 and has been updated where appropriate, and reflect my current medical decision making from today. CC: This is a 58 year old female with a history of breast cancer, seen for scheduled follow-up. INTERIM HISTORY: Since the patient's last visit here she has had no significant medical changes. Her chronic neck and back pain persist and are unchanged. She has ongoing anxiety for which she takes Valium with improvement. No new complaints today. She has noticed no changes in her breasts. Most recent mammogram 12/09/2023 benign. Routine surveillance mammogram at 12 months recommended. MEDICATIONS: oxyCODONE-acetaminophen (PERCOCET) 5-325 mg tablet Take by mouth every 8 hours as needed for pain. diazePAM (VALIUM) 5 mg tablet Take 5 mg by mouth every 6 hours as needed. diphenhydramine HCl (BENADRYL ALLERGY ORAL) Take by mouth. ALLERGIES: Latex PAST MEDICAL HISTORY: No past medical history on file. PAST SURGICAL HISTORY: No past surgical history on file. REVIEW OF SYSTEMS: GENERAL: No weight loss, malaise or fevers. HEENT: Negative for frequent or significant headaches, No changes in hearing or vision, no nose bleeds or other nasal problems RESPIRATORY: Negative for cough, wheezing or shortness of breath. CARDIOVASCULAR: Negative for chest pain, leg swelling or palpitations. GI: Negative for abdominal discomfort, blood in stools or black stools or change in bowel habits : No history of dysuria, frequency or incontinence MUSCULOSKELETAL: Negative for: joint pain or swelling, back pain and muscle pain SKIN: Negative for lesions, rash, and itching. HEMATOLOGY/LYMPHOLOGY: Negative for prolonged bleeding, bruising easily or swollen nodes. NEURO: No history of headaches, syncope, paralysis, seizures or tremors PHYSICAL EXAM: Vitals: BP 129/76 Pulse 80 Temp 36.5 ?C (97.7 ?F) (Temporal) Resp 16 Ht 167.6 cm (5' 5.98 ) Wt 60 kg (132 lb 4.4 oz) SpO2 97% BMI 21.36 kg/m? General appearance: well appearing, alert, in no acute distress, well-hydrated, well nourished Skin: skin color, texture, turgor normal, no suspicious rashes or lesions Head: normal Eyes: Anicteric sclera. Pupils are equally round and reactive to light. Extraocular movements are intact. Ears: negative findings: external ears normal to inspection and palpation Oropharynx: negative Neck: Supple, no adenopathy; thyroid symmetric, normal size Lymph Nodes: No Submandibular, cervical, supraclavicular, axillary, or inguinal lymphadenopathy present Breast: Well-healed left lumpectomy scar on the left with mild surrounding tenderness. Right breast normal. Back: no tenderness to palpation Lungs: clear to auscultation, no wheezing or rhonchi Heart: Negative. RRR without murmur, gallop, or rubs. No ectopy. Abdomen: Normal abdominal exam, Abdomen soft, non-tender. Bowel sounds normal. No masses, organomegaly Rectal: Not done Extremities: Extremities normal. No deformities, edema, or skin discoloration. Good capillary refill. Musculoskeletal: No joint swelling, deformity, or tenderness. Peripheral pulses: Normal PATHOLOGY: 07/04/2022 Breast, left, at 9:00, middle depth, calcifications, Top hat clip, stereotactic core biopsy: ---Benign breast parenchyma with stromal fibrosis. ---Microcalcifications are present within benign breast. LABORATORY DATA: Hemoglobin (g/dL) Date Value 01/08/2024 13.4 05/31/2021 13.7 Hematocrit (%) Date Value 01/08/2024 38.5 05/31/2021 41.0 WBC (k/uL) Date Value 01/08/2024 7.70 05/31/2021 9.01 Platelet Count (k/uL) Date Value 01/08/2024 290 05/31/2021 321 RADIOLOGY/OTHER STUDIES: 12/09/2023 Bilateral diagnostic mammogram ([facility]) Benign finding. Normal interval follow-up at 12 months recommended. 05/15/2023 Diagnostic left mammogram ([facility]) BI-RADS 3, probably benign. Short interval follow-up with bilateral mammogram at 6 months recommended. 01/03/2023 Bilateral diagnostic mammogram ([facility]) Benign findings. Normal interval follow-up. 06/11/2022 [facility] Mammogram interpretation The tissue in both breasts is extremely dense, which can decrease the sensitivity of the mammogram. There are no suspicious mammographic finding seen in the right breast, with overall pattern not significantly changed from 2018 exam. Stable postsurgical changes in the left breast. There are new coarse heterogeneous calcifications in the left breast at 9:00, middle depth, which stereotactic guided biopsy was recommended. Recommendation: 1. Stereotactic guided biopsy of new coarse heterogeneous calcifications in th (more content not included)... [facility] 01-07-2024 History of Present illness Narrative PATIENT NAME: Minna Yi DATE: 01/08/2024 PRIMARY CARE PHYSICIAN: Dr. Hall OTHER PHYSICIANS: Dr. Galindo, Dr. De Guzman Portions of this encounter note have been copied from my note from 07/10/2023 and has been updated where appropriate, and reflect my current medical decision making from today. CC: This is a 58 year old female with a history of breast cancer, seen for scheduled follow-up. INTERIM HISTORY: Since the patient's last visit here she has had no significant medical changes. Her chronic neck and back pain persist and are unchanged. She has ongoing anxiety for which she takes Valium with improvement. No new complaints today. She has noticed no changes in her breasts. Most recent mammogram 12/09/2023 benign. Routine surveillance mammogram at 12 months recommended. MEDICATIONS: oxyCODONE-acetaminophen (PERCOCET) 5-325 mg tablet Take by mouth every 8 hours as needed for pain. diazePAM (VALIUM) 5 mg tablet Take 5 mg by mouth every 6 hours as needed. diphenhydramine HCl (BENADRYL ALLERGY ORAL) Take by mouth. ALLERGIES: Latex PAST MEDICAL HISTORY: No past medical history on file. PAST SURGICAL HISTORY: No past surgical history on file. REVIEW OF SYSTEMS: GENERAL: No weight loss, malaise or fevers. HEENT: Negative for frequent or significant headaches, No changes in hearing or vision, no nose bleeds or other nasal problems RESPIRATORY: Negative for cough, wheezing or shortness of breath. CARDIOVASCULAR: Negative for chest pain, leg swelling or palpitations. GI: Negative for abdominal discomfort, blood in stools or black stools or change in bowel habits : No history of dysuria, frequency or incontinence MUSCULOSKELETAL: Negative for: joint pain or swelling, back pain and muscle pain SKIN: Negative for lesions, rash, and itching. HEMATOLOGY/LYMPHOLOGY: Negative for prolonged bleeding, bruising easily or swollen nodes. NEURO: No history of headaches, syncope, paralysis, seizures or tremors PHYSICAL EXAM: Vitals: BP 129/76 Pulse 80 Temp 36.5 C (97.7 F) (Temporal) Resp 16 Ht 167.6 cm (5' 5.98 ) Wt 60 kg (132 lb 4.4 oz) SpO2 97% BMI 21.36 kg/m General appearance: well appearing, alert, in no acute distress, well-hydrated, well nourished Skin: skin color, texture, turgor normal, no suspicious rashes or lesions Head: normal Eyes: Anicteric sclera. Pupils are equally round and reactive to light. Extraocular movements are intact. Ears: negative findings: external ears normal to inspection and palpation Oropharynx: negative Neck: Supple, no adenopathy; thyroid symmetric, normal size Lymph Nodes: No Submandibular, cervical, supraclavicular, axillary, or inguinal lymphadenopathy present Breast: Well-healed left lumpectomy scar on the left with mild surrounding tenderness. Right breast normal. Back: no tenderness to palpation Lungs: clear to auscultation, no wheezing or rhonchi Heart: Negative. RRR without murmur, gallop, or rubs. No ectopy. Abdomen: Normal abdominal exam, Abdomen soft, non-tender. Bowel sounds normal. No masses, organomegaly Rectal: Not done Extremities: Extremities normal. No deformities, edema, or skin discoloration. Good capillary refill. Musculoskeletal: No joint swelling, deformity, or tenderness. Peripheral pulses: Normal PATHOLOGY: 07/04/2022 Breast, left, at 9:00, middle depth, calcifications, Top hat clip, stereotactic core biopsy: ---Benign breast parenchyma with stromal fibrosis. ---Microcalcifications are present within benign breast. LABORATORY DATA: Hemoglobin (g/dL) Date Value 01/08/2024 13.4 05/31/2021 13.7 Hematocrit (%) Date Value 01/08/2024 38.5 05/31/2021 41.0 WBC (k/uL) Date Value 01/08/2024 7.70 05/31/2021 9.01 Platelet Count (k/uL) Date Value 01/08/2024 290 05/31/2021 321 RADIOLOGY/OTHER STUDIES: 12/09/2023 Bilateral diagnostic mammogram ([facility]) Benign finding. Normal interval follow-up at 12 months recommended. 05/15/2023 Diagnostic left mammogram ([facility]) BI-RADS 3, probably benign. Short interval follow-up with bilateral mammogram at 6 months recommended. 01/03/2023 Bilateral diagnostic mammogram ([facility]) Benign findings. Normal interval follow-up. 06/11/2022 [facility] Mammogram interpretation The tissue in both breasts is extremely dense, which can decrease the sensitivity of the mammogram. There are no suspicious mammographic finding seen in the right breast, with overall pattern not significantly changed from 2018 exam. Stable postsurgical changes in the left breast. There are new coarse heterogeneous calcifications in the left breast at 9:00, middle depth, which stereotactic guided biopsy was recommended. Recommendation: 1. Stereotactic guided biopsy of new coarse heterogeneous calcifications in the left breast at 9:00, middle depth. 05/28/2022 Bilateral diagnostic mammogram ([facility]) BI-RADS 4 suspicious abnormality (grouping of calcifications in the medial left breast at the level of the nipple) Stereotactic biopsy recommended. ASSESSMENT/PLAN: 1. Malignant neoplasm of upper-outer quadrant of left breast in female, estrogen receptor negative (HCC) - ICD9: 174.4, V86.1, ICD10: C50.412, Z17.1 History of stage I (T1, N0, M0) triple negative left-sided breast cancer diagnosed January 2009. Status post lumpectomy and adjuvant radiation therapy. Status post adjuvant chemotherapy. She has had no evidence of recurrence, and currently has no evidence of disease. Surveillance mammogram at [facility] 05/28/2022 revealed suspicious microcalcifications in the medial left breast and biopsy was recommended. Findings and recommendations confirmed by [facility] radiology. On 07/04/2022 she underwent a core biopsy of the left breast. Pathology benign. Most recent mammogram 12/09/2023 benign. Routine surveillance mammogram at 12 months recommended. Per patient request we will continue to monitor at our office. Next mammogram will be scheduled for December 2024. Return in 1 year for follow-up. 2. Chronic neck and upper back pain The patient has a long history of benign musculoskeletal pain in her right neck and upper back secondary to degenerative disc disease. Status post multiple spinal surgeries. Pain currently controlled with [id number] Tylenol and NSAIDs. Continue management per PCP. Would consider referral back to pain management plus/minus spine surgery if symptoms worsen. 3. Anxiety The patient has a long history of anxiety. Stable on Valium 5 mg as needed, which she takes sparingly. Yovany Ivan MD documented in this encounter [facility] 12-02-2023 Note Patient Education ENT Otitis Media With Effusion, Adult Otitis media with effusion (OME) is inflammation and fluid (effusion) in the middle ear without having an ear infection. The middle ear is the space behind the eardrum. The middle ear is connected to the back of the throat by a narrow tube (eustachian tube). Normally the eustachian tube drains fluid out of the middle ear. A swollen eustachian tube can become blocked and cause fluid to collect in the middle ear. OME often goes away without treatment. Sometimes OME can lead to hearing problems and recurrent acute ear infections (acute otitis media). These conditions may require treatment. What are the causes? OME is caused by a blocked eustachian tube. This can result from: ? Allergies. ? Upper respiratory infections. ? Enlarged adenoids. The adenoids are areas of soft tissue located high in the back of the throat, behind the nose and the roof of the mouth. They are part of the body's natural defense system (immune system). ? Rapid changes in pressure, like when an airplane is descending or during scuba diving. In some cases, the cause of this condition is not known. What are the signs or symptoms? Common symptoms of this condition include: ? A feeling of fullness in your ear. ? Decreased hearing in the affected ear. ? Fluid draining into the ear canal. ? Pain in the ear. In some cases, there are no symptoms. How is this diagnosed? A health care provider can diagnose OME based on signs and symptoms of the condition. Your provider will also do a physical exam to check for fluid behind the eardrum. During the exam, your health care provider will use an instrument called an otoscope to look in your ear. Your health care provider may do other tests, such as: ? A hearing test. ? A tympanogram. This is a test that shows how well the eardrum moves in response to air pressure in the ear canal. It provides a graph for your health care provider to review. ? A pneumatic otoscopy. This is a test to check how your eardrum moves in response to changes in pressure. It is done by squeezing a small amount of air into the ear. How is this treated? Treatment for OME depends on the cause of the condition and the severity of symptoms. The first step is often waiting to see if the fluid drains on its own in a few weeks. Home care treatment may include: ? [id number] pain relievers. ? A warm, moist cloth placed over the ear. Severe cases may require a procedure to insert tubes in the ears (tympanostomy tubes) to drain the fluid. Follow these instructions at home: ? Take [id number]-clb-[id number] and prescription medicines only as told by your health care provider. ? Keep all follow-up visits. Contact a health care provider if: ? You have pain that gets worse. ? Hearing in your affected ear gets worse. ? You have fluid draining from your ear canal. ? You have dizziness. ? You develop a fever. Get help right away if: ? You develop a severe headache. ? You completely lose hearing in the affected ear. ? You have bleeding from your ear canal. ? You have sudden and severe pain in your ear. These symptoms may represent a serious problem that is an emergency. Do not wait to see if the symptoms will go away. Get medical help right away. Call your local emergency services (911 in the [place] Do not drive yourself to the hospital. Summary ? Otitis media with effusion (OME) is inflammation and fluid (effusion) in the middle ear without having an ear infection. ? A swollen eustachian tube can become blocked and cause fluid to collect in the middle ear. ? Treatment for OME depends on the cause of the condition and the severity of symptoms. ? Many times, treatment is not needed because the fluid drains on its own in a few weeks. ? Sometimes OME can lead to hearing problems and recurrent acute ear infections (acute otitis media), which may require treatment. This information is not intended to replace advice given to you by your health care provider. Make sure you discuss any questions you have with your health care provider. Document Revised: 07/19/2021 Document Reviewed: 07/19/2021 [employer] Patient Education ? 2022 [employer] [facility] 07-10-2023 Note HNO ID: [id number] Author: YOVANY IVAN MD Service: ? Author Type: Physician Type: Progress Notes Filed: 07/11/2023 08:37 Note Text: PATIENT NAME: Minna Yi DATE: 07/10/2023 PRIMARY CARE PHYSICIAN: Dr. Hall OTHER PHYSICIANS: Dr. Galindo, Dr. De Guzman Portions of this encounter note have been copied from my note from 12/05/2022 and has been updated where appropriate, and reflect my current medical decision making from today. CC: This is a 57 year old female with a history of breast cancer, seen for scheduled follow-up. INTERIM HISTORY: Since the patient's last visit here she has had no significant medical changes. Her chronic neck and back pain persist and are unchanged. She has ongoing anxiety for which she takes Valium with improvement. No new complaints today. Recent left-sided mammogram 05/15/2023 stable. Bilateral mammogram at 6 months recommended. She has chronic discomfort in the left breast which is stable, otherwise no clinical changes. MEDICATIONS: diphenhydramine HCl (BENADRYL ALLERGY ORAL) Take by mouth. ALLERGIES: Latex PAST MEDICAL HISTORY: No past medical history on file. PAST SURGICAL HISTORY: No past surgical history on file. REVIEW OF SYSTEMS: GENERAL: No weight loss, malaise or fevers. HEENT: Negative for frequent or significant headaches, No changes in hearing or vision, no nose bleeds or other nasal problems RESPIRATORY: Negative for cough, wheezing or shortness of breath. CARDIOVASCULAR: Negative for chest pain, leg swelling or palpitations. GI: Negative for abdominal discomfort, blood in stools or black stools or change in bowel habits : No history of dysuria, frequency or incontinence MUSCULOSKELETAL: Negative for: joint pain or swelling, back pain and muscle pain SKIN: Negative for lesions, rash, and itching. HEMATOLOGY/LYMPHOLOGY: Negative for prolonged bleeding, bruising easily or swollen nodes. NEURO: No history of headaches, syncope, paralysis, seizures or tremors PHYSICAL EXAM: Vitals: BP 137/73 Pulse 89 Temp 36.1 ?C (97 ?F) (Temporal) Resp 16 Ht 167.6 cm (5' 5.98 ) Wt 61 kg (134 lb 7.7 oz) SpO2 98% BMI 21.72 kg/m? General appearance: well appearing, alert, in no acute distress, well-hydrated, well nourished Skin: skin color, texture, turgor normal, no suspicious rashes or lesions Head: normal Eyes: Anicteric sclera. Pupils are equally round and reactive to light. Extraocular movements are intact. Ears: negative findings: external ears normal to inspection and palpation Oropharynx: negative Neck: Supple, no adenopathy; thyroid symmetric, normal size Lymph Nodes: No Submandibular, cervical, supraclavicular, axillary, or inguinal lymphadenopathy present Breast: Well-healed left lumpectomy scar on the left with mild surrounding tenderness. Right breast normal. Back: no tenderness to palpation Lungs: clear to auscultation, no wheezing or rhonchi Heart: Negative. RRR without murmur, gallop, or rubs. No ectopy. Abdomen: Normal abdominal exam, Abdomen soft, non-tender. Bowel sounds normal. No masses, organomegaly Rectal: Not done Extremities: Extremities normal. No deformities, edema, or skin discoloration. Good capillary refill. Musculoskeletal: No joint swelling, deformity, or tenderness. Peripheral pulses: Normal PATHOLOGY: 07/04/2022 Breast, left, at 9:00, middle depth, calcifications, Top hat clip, stereotactic core biopsy: ---Benign breast parenchyma with stromal fibrosis. ---Microcalcifications are present within benign breast. LABORATORY DATA: Hemoglobin (g/dL) Date Value 07/10/2023 13.0 05/31/2021 13.7 Hematocrit (%) Date Value 07/10/2023 37.8 05/31/2021 41.0 WBC (k/uL) Date Value 07/10/2023 8.94 05/31/2021 9.01 Platelet Count (k/uL) Date Value 07/10/2023 294 05/31/2021 321 RADIOLOGY/OTHER STUDIES: 05/15/2023 Diagnostic left mammogram ([facility]) BI-RADS 3, probably benign. Short interval follow-up with bilateral mammogram at 6 months recommended. 01/03/2023 Bilateral diagnostic mammogram ([facility]) Benign findings. Normal interval follow-up. 06/11/2022 [facility] Mammogram interpretation The tissue in both breasts is extremely dense, which can decrease the sensitivity of the mammogram. There are no suspicious mammographic finding seen in the right breast, with overall pattern not significantly changed from 2018 exam. Stable postsurgical changes in the left breast. There are new coarse heterogeneous calcifications in the left breast at 9:00, middle depth, which stereotactic guided biopsy was recommended. Recommendation: 1. Stereotactic guided biopsy of new coarse heterogeneous calcifications in the left breast at 9:00, middle depth. 05/28/2022 Bilateral diagnostic mammogram ([facility]) BI-RADS 4 suspicious abnormality (grouping of calcifications in the medial left breast at the level of the nipple) Stereotactic biopsy recommended. ASSESSMENT/P (more content not included)... [facility] 07-10-2023 History of Present illness Narrative PATIENT NAME: Minna Yi DATE: 07/10/2023 PRIMARY CARE PHYSICIAN: Dr. Hall OTHER PHYSICIANS: Dr. Galindo, Dr. De Guzman Portions of this encounter note have been copied from my note from 12/05/2022 and has been updated where appropriate, and reflect my current medical decision making from today. CC: This is a 57 year old female with a history of breast cancer, seen for scheduled follow-up. INTERIM HISTORY: Since the patient's last visit here she has had no significant medical changes. Her chronic neck and back pain persist and are unchanged. She has ongoing anxiety for which she takes Valium with improvement. No new complaints today. Recent left-sided mammogram 05/15/2023 stable. Bilateral mammogram at 6 months recommended. She has chronic discomfort in the left breast which is stable, otherwise no clinical changes. MEDICATIONS: diphenhydramine HCl (BENADRYL ALLERGY ORAL) Take by mouth. ALLERGIES: Latex PAST MEDICAL HISTORY: No past medical history on file. PAST SURGICAL HISTORY: No past surgical history on file. REVIEW OF SYSTEMS: GENERAL: No weight loss, malaise or fevers. HEENT: Negative for frequent or significant headaches, No changes in hearing or vision, no nose bleeds or other nasal problems RESPIRATORY: Negative for cough, wheezing or shortness of breath. CARDIOVASCULAR: Negative for chest pain, leg swelling or palpitations. GI: Negative for abdominal discomfort, blood in stools or black stools or change in bowel habits : No history of dysuria, frequency or incontinence MUSCULOSKELETAL: Negative for: joint pain or swelling, back pain and muscle pain SKIN: Negative for lesions, rash, and itching. HEMATOLOGY/LYMPHOLOGY: Negative for prolonged bleeding, bruising easily or swollen nodes. NEURO: No history of headaches, syncope, paralysis, seizures or tremors PHYSICAL EXAM: Vitals: BP 137/73 Pulse 89 Temp 36.1 C (97 F) (Temporal) Resp 16 Ht 167.6 cm (5' 5.98 ) Wt 61 kg (134 lb 7.7 oz) SpO2 98% BMI 21.72 kg/m General appearance: well appearing, alert, in no acute distress, well-hydrated, well nourished Skin: skin color, texture, turgor normal, no suspicious rashes or lesions Head: normal Eyes: Anicteric sclera. Pupils are equally round and reactive to light. Extraocular movements are intact. Ears: negative findings: external ears normal to inspection and palpation Oropharynx: negative Neck: Supple, no adenopathy; thyroid symmetric, normal size Lymph Nodes: No Submandibular, cervical, supraclavicular, axillary, or inguinal lymphadenopathy present Breast: Well-healed left lumpectomy scar on the left with mild surrounding tenderness. Right breast normal. Back: no tenderness to palpation Lungs: clear to auscultation, no wheezing or rhonchi Heart: Negative. RRR without murmur, gallop, or rubs. No ectopy. Abdomen: Normal abdominal exam, Abdomen soft, non-tender. Bowel sounds normal. No masses, organomegaly Rectal: Not done Extremities: Extremities normal. No deformities, edema, or skin discoloration. Good capillary refill. Musculoskeletal: No joint swelling, deformity, or tenderness. Peripheral pulses: Normal PATHOLOGY: 07/04/2022 Breast, left, at 9:00, middle depth, calcifications, Top hat clip, stereotactic core biopsy: ---Benign breast parenchyma with stromal fibrosis. ---Microcalcifications are present within benign breast. LABORATORY DATA: Hemoglobin (g/dL) Date Value 07/10/2023 13.0 05/31/2021 13.7 Hematocrit (%) Date Value 07/10/2023 37.8 05/31/2021 41.0 WBC (k/uL) Date Value 07/10/2023 8.94 05/31/2021 9.01 Platelet Count (k/uL) Date Value 07/10/2023 294 05/31/2021 321 RADIOLOGY/OTHER STUDIES: 05/15/2023 Diagnostic left mammogram ([facility]) BI-RADS 3, probably benign. Short interval follow-up with bilateral mammogram at 6 months recommended. 01/03/2023 Bilateral diagnostic mammogram ([facility]) Benign findings. Normal interval follow-up. 06/11/2022 [facility] Mammogram interpretation The tissue in both breasts is extremely dense, which can decrease the sensitivity of the mammogram. There are no suspicious mammographic finding seen in the right breast, with overall pattern not significantly changed from 2018 exam. Stable postsurgical changes in the left breast. There are new coarse heterogeneous calcifications in the left breast at 9:00, middle depth, which stereotactic guided biopsy was recommended. Recommendation: 1. Stereotactic guided biopsy of new coarse heterogeneous calcifications in the left breast at 9:00, middle depth. 05/28/2022 Bilateral diagnostic mammogram ([facility]) BI-RADS 4 suspicious abnormality (grouping of calcifications in the medial left breast at the level of the nipple) Stereotactic biopsy recommended. ASSESSMENT/PLAN: 1. Malignant neoplasm of upper-outer quadrant of left breast in female, estrogen receptor negative (HCC) - ICD9: 174.4, V86.1, ICD10: C50.412, Z17.1 History of stage I (T1, N0, M0) triple negative left-sided breast cancer diagnosed January 2009. Status post lumpectomy and adjuvant radiation therapy. Status post adjuvant chemotherapy. She has had no evidence of recurrence, and currently has no evidence of disease. Surveillance mammogram at [facility] 05/28/2022 revealed suspicious microcalcifications in the medial left breast and biopsy was recommended. Findings and recommendations confirmed by [facility] radiology. On 07/04/2022 she underwent a core biopsy of the left breast. Pathology benign. Most recent left-sided mammogram 05/15/2023 stable. As recommended she will undergo a bilateral diagnostic mammogram at 6 months. She will then return for follow-up. If stable we will then return to yearly evaluation. 2. Chronic neck and upper back pain The patient has a long history of benign musculoskeletal pain in her right neck and upper back secondary to degenerative disc disease. Status post multiple spinal surgeries. Pain currently controlled with [id number] Tylenol and NSAIDs. Continue management per PCP. Would consider referral back to pain management plus/minus spine surgery if symptoms worsen. 3. Anxiety The patient has a long history of anxiety. Stable on Valium 5 mg every 8 hours as needed. I strongly encouraged her to follow-up with her PCP or consider referral to mental health, but currently she declines. We will discuss again at her return visit. Yovany Ivan MD documented in this encounter [facility] 06-09-2023 Miscellaneous Notes Pt requests refill of Diazepam. [facility] original prescriber. Paulie Antoine, RN documented in this encounter [facility] 01-03-2023 Evaluation + Plan note Future Scheduled TestsMA Mamm Diag w/CAD if perf and 3D Ozzy 01/03/23 [facility] 12-05-2022 Miscellaneous Notes Patient would like to keep her Left Mammogram in December for [facility] that was scheduled on 01/03. She is requesting for her future Mammogram be scheduled at [facility]. GRIS/Reece: Can you please place her Bilateral Mammogram order for June 2023 and I will get set up at [facility]? Thank you! Johnny Wright documented in this encounter [facility] 12-05-2022 History of Present illness Narrative PATIENT NAME: Minna Yi DATE: 12/05/2022 PRIMARY CARE PHYSICIAN: Dr. Hall OTHER PHYSICIANS: Dr. Galindo, Dr. De Guzman Portions of this encounter note have been copied from my note from 06/06/2022 and has been updated where appropriate, and reflect my current medical decision making from today. CC: This is a 56 year old female with a history of breast cancer and recently discovered abnormal left mammogram, seen for scheduled follow-up. INTERIM HISTORY: Since the patient's last visit here her [facility] mammogram was reviewed by [facility] radiology, and because of suspicious microcalcifications a biopsy was recommended. Stereotactic core biopsy of the left breast 07/04/2022 was negative for malignancy. Since then she has noticed no changes in her breast. Since her last visit she has had no significant medical changes. She continues to have severe anxiety for which she takes Valium as needed. At her last visit a mental health referral was recommended, but the patient declined. MEDICATIONS: diphenhydramine HCl (BENADRYL ALLERGY ORAL) Take by mouth. ALLERGIES: Latex PAST MEDICAL HISTORY: No past medical history on file. PAST SURGICAL HISTORY: No past surgical history on file. REVIEW OF SYSTEMS: GENERAL: No weight loss, malaise or fevers. HEENT: Negative for frequent or significant headaches, No changes in hearing or vision, no nose bleeds or other nasal problems RESPIRATORY: Negative for cough, wheezing or shortness of breath. CARDIOVASCULAR: Negative for chest pain, leg swelling or palpitations. GI: Negative for abdominal discomfort, blood in stools or black stools or change in bowel habits : No history of dysuria, frequency or incontinence MUSCULOSKELETAL: Negative for: joint pain or swelling, back pain and muscle pain SKIN: Negative for lesions, rash, and itching. HEMATOLOGY/LYMPHOLOGY: Negative for prolonged bleeding, bruising easily or swollen nodes. NEURO: No history of headaches, syncope, paralysis, seizures or tremors PHYSICAL EXAM: Vitals: BP 129/84 Pulse 97 Temp 36.3 C (97.4 F) (Temporal) Resp 16 Ht 167.6 cm (5' 5.98 ) Wt 56.2 kg (123 lb 12.8 oz) SpO2 100% BMI 19.99 kg/m General appearance: well appearing, alert, in no acute distress, well-hydrated, well nourished Skin: skin color, texture, turgor normal, no suspicious rashes or lesions Head: normal Eyes: Anicteric sclera. Pupils are equally round and reactive to light. Extraocular movements are intact. Ears: negative findings: external ears normal to inspection and palpation Oropharynx: negative Neck: Supple, no adenopathy; thyroid symmetric, normal size Lymph Nodes: No Submandibular, cervical, supraclavicular, axillary, or inguinal lymphadenopathy present Breast: Well-healed left lumpectomy scar. Right breast normal. Back: no tenderness to palpation Lungs: clear to auscultation, no wheezing or rhonchi Heart: Negative. RRR without murmur, gallop, or rubs. No ectopy. Abdomen: Normal abdominal exam, Abdomen soft, non-tender. Bowel sounds normal. No masses, organomegaly Rectal: Not done Extremities: Extremities normal. No deformities, edema, or skin discoloration. Good capillary refill. Musculoskeletal: No joint swelling, deformity, or tenderness. Peripheral pulses: Normal PATHOLOGY: 07/04/2022 Breast, left, at 9:00, middle depth, calcifications, Top hat clip, stereotactic core biopsy: ---Benign breast parenchyma with stromal fibrosis. ---Microcalcifications are present within benign breast. LABORATORY DATA: Hemoglobin (g/dL) Date Value 06/06/2022 13.1 05/31/2021 13.7 Hematocrit (%) Date Value 06/06/2022 39.0 05/31/2021 41.0 WBC (k/uL) Date Value 06/06/2022 8.06 05/31/2021 9.01 Platelet Count (k/uL) Date Value 06/06/2022 281 05/31/2021 321 RADIOLOGY/OTHER STUDIES: 06/11/2022 [facility] Mammogram interpretation The tissue in both breasts is extremely dense, which can decrease the sensitivity of the mammogram. There are no suspicious mammographic finding seen in the right breast, with overall pattern not significantly changed from 2018 exam. Stable postsurgical changes in the left breast. There are new coarse heterogeneous calcifications in the left breast at 9:00, middle depth, which stereotactic guided biopsy was recommended. Recommendation: 1. Stereotactic guided biopsy of new coarse heterogeneous calcifications in the left breast at 9:00, middle depth. 05/28/2022 Bilateral diagnostic mammogram ([facility]) BI-RADS 4 suspicious abnormality (grouping of calcifications in the medial left breast at the level of the nipple) Stereotactic biopsy recommended. ASSESSMENT/PLAN: 1. Malignant neoplasm of upper-outer quadrant of left breast in female, estrogen receptor negative (HCC) - ICD9: 174.4, V86.1, ICD10: C50.412, Z17.1 History of stage I (T1, N0, M0) triple negative left-sided breast cancer diagnosed January 2009. Status post lumpectomy and adjuvant radiation therapy. Status post adjuvant chemotherapy. She has had no evidence of recurrence, and currently has no evidence of disease. Surveillance mammogram at [facility] 05/28/2022 revealed suspicious microcalcifications in the medial left breast, and biopsy was recommended. Findings and recommendations confirmed by [facility] radiology. On 07/04/2022 she underwent a core biopsy of the left breast, and pathology benign. Repeat mammogram at 6 months recommended. If her mammogram remains stable the patient will undergo a bilateral mammogram in June 2023. I will see her back in July 2023 for follow-up. We elected to obtain labs on yearly basis. We will stage as indicated if suspicious signs or symptoms develop. 2. Chronic neck and upper back pain The patient has a long history of benign musculoskeletal pain in her right neck and upper back secondary to degenerative disc disease. Status post multiple spinal surgeries. Pain currently controlled with [id number] Tylenol and NSAIDs. Continue management per PCP. Would consider referral back to pain management plus/minus spine surgery if symptoms worsen. 3. Anxiety The patient has a long history of anxiety. Stable on Valium 5 mg every 8 hours as needed. Prescription renewed today. I strongly encouraged her to follow-up with her PCP or consider referral to mental health, but currently she declines. We will discuss again at her return visit. Yovany Ivan MD documented in this encounter [facility] 12-02-2022 Miscellaneous Notes Pt calls stating she has a follow up appointment with [facility] this week. Wants to make sure that she doesn't need a mammogram done first. Reviewed pt's biopsy results and it recommended follow up mammogram in 6 months, which would be end of December/beginning of January. Pt planning on keeping appointment for now. [facility]: please advise if other rec's Thanks Gunjan Segura RN documented in this encounter [facility] 07-15-2022 Miscellaneous Notes Order faxed to [facility] per pt request. Pt notified. Rossana Hawkins RN Signed. Reece Russell APRN.AWILDA Received call from pt stating biopsy results were benign and she was told to have Dr Ivan order a repeat mammogram in Dec. [facility]: Order pending, please review and sign. Rossana Hawkins RN documented in this encounter [facility] 07-04-2022 Note HNO ID: [id number] Author: Joselito Alberts Service: ? Author Type: Snuff Box Finisher Type: Patient Education Filed: 07/04/2022 10:11 AM Note Text: Verbal and written instructions given to patient. [facility] 07-04-2022 Instructions Formatting of th is note might be different from the original. Verbal and written instructions given to patient. [facility] 07-04-2022 Miscellaneous Notes Verbal and written instructions given to patient. documented in this encounter [facility] 06-25-2022 Miscellaneous Notes [facility] Mammography notified and verbalizes understanding. Aisha Man RN Letter received from [facility] mammography department. Notes the pt's most recent mammogram recommended a biopsy. As of 06/17/22, the pt has not made arrangements. Per Dr Ivan, the pt requested to have the biopsy done through [facility]. Biopsy scheduled for 07/04/22 @ [place]. Call placed to [facility] Mammography. No answer. Message left requesting call back. Aisha Man RN documented in this encounter [facility] 06-12-2022 Miscellaneous Notes Images from the original note were not included. Ernie Medrano 4 hours ago (10:23 AM) TJ Called [facility] they are going to call patient to set up appointment. Note Bridget Medrano 5 hours ago (9:21 AM) JK For Breast Biopsies you have to call [phone]. I don't schedule [facility] Bi[facility]. Monie Medrano Called [facility] they are going to call patient to set up appointment. Crys Gill can you help with this at all? Or direct me on who I need to call Patient notified, she agrees with the plan and would like to proceed with the biopsy. She is aware that it will be scheduled at [place]. She is aware that scheduling will call her with more info. Kristal Melendez RN ----- Message from Yovany Ivan MD sent at 06/11/2022 10:44 AM EST ----- Please inform the patient that [facility] did read her mammogram, and agree that a biopsy is recommended. If patient agrees please set up at [facility]. Angela Malin documented in this encounter [facility] 06-10-2022 Miscellaneous Notes Images from [facility] have been uploaded to pt's chart. Order for [facility] Radiologist read is in the queue. Call placed to pt. No answer. Left message informing pt of above and to return call if no results have been called to her by next week. Rossana Hawkins RN The patient is questioning results of [facility]'s interpretation of the mammogram done at [facility] on 05/28/2022. I do not see results from [facility]. Please call to see if [facility] obtained images from [facility]. Dea, Angela [facility]: Pt called requesting mammogram result. Results scanned into Epic. Please review. Rossana Hawkins RN documented in this encounter [facility] 06-06-2022 History of Present illness Narrative PATIENT NAME: Minna Yi DATE: 06/06/2022 PRIMARY CARE PHYSICIAN: Dr. Hall OTHER PHYSICIANS: Dr. Galindo, Dr. De Guzman Portions of this encounter note have been copied from my note from 05/31/2021 and has been updated where appropriate, and reflect my current medical decision making from today. CC: This is a 56 year old female with a history of breast cancer, seen for scheduled follow-up. INTERIM HISTORY: Since the patient's last visit here she underwent her surveillance mammogram at [facility] on 05/28/2022. Suspicious calcifications were identified in the left mid breast, and biopsy recommended. The patient has noticed no clinical changes in her breasts. She has had no other medical changes. She has ongoing anxiety for which she takes Valium as needed. She has chronic pain in her right neck and upper back for which she receives adjustments by her PCP. No new areas of pain or other systemic symptoms. MEDICATIONS: loratadine 10 mg cap Take by mouth. diphenhydramine HCl (BENADRYL ALLERGY ORAL) Take by mouth. pantoprazole DR (PROTONIX) 40 mg tablet Take 1 tablet by mouth once daily. ALLERGIES: Latex PAST MEDICAL HISTORY: No past medical history on file. PAST SURGICAL HISTORY: No past surgical history on file. REVIEW OF SYSTEMS: GENERAL: No weight loss, malaise or fevers. HEENT: Negative for frequent or significant headaches, No changes in hearing or vision, no nose bleeds or other nasal problems RESPIRATORY: Negative for cough, wheezing or shortness of breath. CARDIOVASCULAR: Negative for chest pain, leg swelling or palpitations. GI: Negative for abdominal discomfort, blood in stools or black stools or change in bowel habits : No history of dysuria, frequency or incontinence MUSCULOSKELETAL: Negative for: joint pain or swelling, back pain and muscle pain SKIN: Negative for lesions, rash, and itching. HEMATOLOGY/LYMPHOLOGY: Negative for prolonged bleeding, bruising easily or swollen nodes. NEURO: No history of headaches, syncope, paralysis, seizures or tremors PHYSICAL EXAM: Vitals: BP 111/65 Pulse 91 Temp 36.4 C (97.6 F) (Temporal) Resp 16 Ht 167.6 cm (5' 5.98 ) Wt 52.1 kg (114 lb 12.8 oz) SpO2 99% BMI 18.54 kg/m General appearance: well appearing, alert, in no acute distress, well-hydrated, well nourished Skin: skin color, texture, turgor normal, no suspicious rashes or lesions Head: normal Eyes: Anicteric sclera. Pupils are equally round and reactive to light. Extraocular movements are intact. Ears: negative findings: external ears normal to inspection and palpation Oropharynx: negative Neck: Supple, no adenopathy; thyroid symmetric, normal size Lymph Nodes: No Submandibular, cervical, supraclavicular, axillary, or inguinal lymphadenopathy present Breast: Well-healed left lumpectomy scar. Right breast normal. Back: no tenderness to palpation Lungs: clear to auscultation, no wheezing or rhonchi Heart: Negative. RRR without murmur, gallop, or rubs. No ectopy. Abdomen: Normal abdominal exam, Abdomen soft, non-tender. Bowel sounds normal. No masses, organomegaly Rectal: Not done Extremities: Extremities normal. No deformities, edema, or skin discoloration. Good capillary refill. Musculoskeletal: No joint swelling, deformity, or tenderness. Peripheral pulses: Normal LABORATORY DATA: Hemoglobin (g/dL) Date Value 06/06/2022 13.1 05/31/2021 13.7 Hematocrit (%) Date Value 06/06/2022 39.0 05/31/2021 41.0 WBC (k/uL) Date Value 06/06/2022 8.06 05/31/2021 9.01 Platelet Count (k/uL) Date Value 06/06/2022 281 05/31/2021 321 RADIOLOGY/OTHER STUDIES: 05/28/2022 Bilateral diagnostic mammogram ([facility]) BI-RADS 4 suspicious abnormality (grouping of calcifications in the medial left breast at the level of the nipple) Stereotactic biopsy recommended. ASSESSMENT/PLAN: 1. Malignant neoplasm of upper-outer quadrant of left breast in female, estrogen receptor negative (HCC) - ICD9: 174.4, V86.1, ICD10: C50.412, Z17.1 History of stage I (T1, N0, M0) triple negative left-sided breast cancer diagnosed January 2009. Status post lumpectomy and adjuvant radiation therapy. Status post adjuvant chemotherapy. She has had no evidence of recurrence, and currently has no evidence of disease. Surveillance mammogram 05/28/2022 revealed suspicious microcalcifications in the medial left breast, and biopsy has been recommended. However, the patient made it clear that she does not wish to have the procedure done at [facility]. At the patient's request we will refer her mammogram to [facility] radiology for second opinion. If a breast biopsy is recommended she would prefer to have the procedure done at a [facility] facility. We will notify the patient of her mammogram results when available, and arrange biopsy if indicated. I will schedule a temporary return visit here in 6 months for follow-up. 2. Chronic neck and upper back pain The patient has a long history of benign musculoskeletal pain in her right neck and upper back secondary to degenerative disc disease. Status post multiple spinal surgeries. Pain currently controlled with [id number] Tylenol and NSAIDs. Continue management per PCP. Would consider referral back to pain management plus/minus spine surgery if symptoms worsen. 3. Anxiety Stable on Valium 5 mg every 8 hours as needed. Prescription renewed today. Yovany Ivan MD documented in this encounter [facility] 01-11-2022 Hospital Discharge instructions Follow Up Care 01/11/2022 11:52:40 With:Itz HALL DO, FAM Address: [address] [place] [address]- When: only if needed [facility] 08-31-2021 Miscellaneous Notes The following approved medication requests have been transmitted electronically. Signed Prescriptions Disp Refills diazePAM (VALIUM) 5 mg tablet 50 tablet 1 Sig: Take 1 tablet by mouth every 8 hours as needed for up to 90 days. IMTIAZ Class: C-IV ADI: No Authorizing Provider: REECE RUSSELL APRN.CNP documented in this encounter [facility] Evaluation + Plan note Future Appointments Appointment Date:05/28/2022 09:45:00 AM Scheduled Provider: Location:FT.MAMMOGRAM Appointment Type:MA Diagnostic (FT) Future Scheduled TestsMA Mamm Diag w/CAD if perf and 3D Ozzy 05/28/22 [facility] Evaluation + Plan note Future Appointments Appointment Date:12/09/2023 08:45:00 AM Scheduled Provider: Location:FT.MAMMOGRAM Appointment Type:MA Diagnostic (FT) Future Scheduled TestsMA Mamm Diag w/CAD if perf and 3D Ozzy 01/03/23MA Mamm Diag w/CAD if perf and 3D Ozzy 12/09/23 [facility] Care Evaluation note Diagnosis Malignant neoplasm of upper-outer quadrant of left breast in female, estrogen receptor negative (HCC) Anxiety Anxiety state, unspecified documented in this encounter [facility] note* Diagnosis Malignant neoplasm of upper-outer quadrant of left breast in female, estrogen receptor negative (HCC)- Primary Anxiety Anxiety state, unspecified documented in this encounter [facility] note* Diagnosis Malignant neoplasm of upper-outer quadrant of left breast in female, estrogen receptor negative (HCC) Anxiety Anxiety state, unspecified documented in this encounter [facility] note* Diagnosis Abnormal mammogram of left breast- Primary documented in this encounter [facility] note* Diagnosis Malignant neoplasm of upper-outer quadrant of left breast in female, estrogen receptor negative (HCC)- Primary documented in this encounter [facility] note* Diagnosis Malignant neoplasm of upper-outer quadrant of left breast in female, estrogen receptor negative (HCC)- Primary Abnormal mammogram of left breast Anxiety Anxiety state, unspecified documented in this encounter [facility] note* Diagnosis Malignant neoplasm of upper-outer quadrant of left breast in female, estrogen receptor negative (HCC) Abnormal mammogram of left breast documented in this encounter [facility] note* Diagnosis Malignant neoplasm of upper-outer quadrant of left breast in female, estrogen receptor negative (HCC)- Primary Anxiety Anxiety state, unspecified Chronic back pain, unspecified back location, unspecified back pain laterality documented in this encounter [facility] note* Diagnosis Breast calcifications on mammogram Other (abnormal) findings on radiological examination of breast documented in this encounter [facility] note* Diagnosis Malignant neoplasm of upper-outer quadrant of left breast in female, estrogen receptor negative (HCC)- Primary Anxiety Anxiety state, unspecified documented in this encounter [facility] note* Diagnosis Anxiety- Primary Anxiety state, unspecified documented in this encounter [facility] note* Diagnosis 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- Primary Dysfunction of right eustachian tube Left otitis media, unspecified otitis media type [facility] N[facility]ative No data available for this section [facility] Discharge instructions No data available for this section [facility] No data available for this section [facility] Reason for referral (narrative)* Diagnostic Procedure Only (Routine) - Pending Review Specialty Diagnoses / Procedures [facility] Diagnoses Abnormal mammogram of left breast Procedures US BIOPSY BREAST LT BX BREAST W/DEVICE 1ST LESION ULTRASOUND Yovany Lu MD [address] [place] [address] [place] [address] [facility] [address] [id number] Referral ID Status Reason Start Date Expiration Date Visits Requested Visits Authorized [id number] Pending Review Auto-Generat ed Referral 06/11/2022 07/11/2023 1 1 [facility] for referral (narrative)* Diagnostic Procedure Only (Routine) - Pending Review Specialty Diagnoses / Procedures [facility] Diagnoses Malignant neoplasm of upper-outer quadrant of left breast in female, estrogen receptor negative (HCC) Procedures EMMA DIAGNOSTIC BILATERAL DIAGNOSTIC MAMMOGRAPHY COMPUTER-AIDED DETCJ Reece Mccarthy APRN.CNP [address] [place] [address] [place] [address] [facility] [address] [place] [address] Referral ID Status Reason Start Date Expiration Date Visits Requested Visits Authorized [id number] Pending Review Auto-Generat ed Referral 07/12/2022 08/11/2023 1 1 [facility] for referral (narrative)* Diagnostic Procedure Only (Routine) - Pending Review Specialty Diagnoses / Procedures [facility] Contact [facility] Diagnoses Malignant neoplasm of upper-outer quadrant of left breast in female, estrogen receptor negative (HCC) Abnormal mammogram of left breast Procedures EMMA DIAGNOSTIC LEFT DIAGNOSTIC MAMMOGRAPHY COMPUTER-AIDED DETCJ Yovany Condon MD [address] [place] [address] [facility] [address] [phone] Referral ID Status Reason Start Date Expiration Date Visits Requested Visits Authorized [id number] Pending Review Auto-Generat ed Referral 12/05/2022 01/04/2024 1 1 [facility] for referral (narrative)* Diagnostic Procedure Only (Routine) - Pending Review Specialty Diagnoses / Procedures Referred By [facility] Referred To Contact [facility] Diagnoses Malignant neoplasm of upper-outer quadrant of left breast in female, estrogen receptor negative (HCC) Procedures EMMA DIAGNOSTIC BILATERAL DIAGNOSTIC MAMMOGRAPHY COMPUTER-AIDED DETCJ Yovany Cruz MD [address] [place] [address] [place] [address] [facility] [address] [place] [phone] Referral ID Status Reason Start Date Expiration Date Visits Requested Visits Authorized [id number] Pending Review Auto-Generat ed Referral 07/10/2023 08/08/2024 1 1 T [facility] for referral (narrative)* Diagnostic Procedure Only (Routine) - Closed Specialty Diagnoses / Procedures [facility] Diagnoses Breast calcifications on mammogram Procedures EMMA STEREO BX BREAST LT BX BREAST W/DEVICE 1ST LESION STEREOTACTIC GUID Christina Rothman MD [address] [address] [facility] [address] [place] [address] Referral ID Status Reason Start Date Expiration Date V isits Requested Visits Authorized [id number] Closed Auto-Generate d Referral 06/11/2022 07/11/2023 1 1 [facility] for referral (narrative)* Diagnostic Procedure Only (Routine) - New Request Specialty Diagnoses / Procedures [facility] To [facility] Diagnoses Malignant neoplasm of upper-outer quadrant of left breast in female, estrogen receptor negative (HCC) Procedures EMMA SCREENING W SIRISHA SCREENING DIGITAL BREAST TOMOSYNTHESIS BI SCREENING MAMMOGRAPHY BI 2-VIEW BREAST INC CAD Yovany Ivan MD [address] [place] [address] [facility] [address] [place] [address] Referral ID Status Reason Start Date Expiration Date Visits Requested Visits Authorized [id number] New Request Auto-Generat ed Referral 01/08/2024 02/06/2025 1 [facility] Diagnostic Procedure Only (Routine) - Closed Specialty Diagnoses / Procedures Referred By [facility] Referred To Contact [facility] Diagnoses Breast calcifications on mammogram Procedures EMMA STEREO BX BREAST LT BX BREAST W/DEVICE 1ST LESION STEREOTACTIC GUID Christina Rothman MD [address] [facility] [address] [place] [address] [facility] [address] [place] [phone] Referral ID Status Reason Start Date Expiration Date V isits Requested Visits Authorized [id number] Closed Auto-Generate d Referral 06/11/2022 07/11/2023 1 1 [facility] Summary Purpose Family History No Family History Records Found No data available for this section No data available for this section No data available for this section No data available for this section No Family History Records FoundNo Family History Records FoundNo Family History Records Found Advance Directives No Advanced Directives Records FoundNo Advanced Directives Records FoundNo Advanced Directives Records FoundNo Advanced Directives Records Found Additional Source Comments Source Comments (unrecognize d section and content) In the event this informatio n is protected by the Federal Confidentiality of Alcohol and Drug Abuse Patient Records regulations: The Federal rules restrict any use of the information to criminally investigate or prosecute any alcohol or drug abuse patient.[facility] the event this information is protected by the Federal Confidentiality of Alcohol and Drug Abuse Patient Records regulations: The Federal rules restrict any use of the information to criminally investigate or prosecute any alcohol or drug abuse patient.[facility] the event this information is protected by the Federal Confidentiality of Alcohol and Drug Abuse Patient Records regulations: The Federal rules restrict any use of the information to criminally investigate or prosecute any alcohol or drug abuse patient.[facility] the event this information is protected by the Federal Confidentiality of Alcohol and Drug Abuse Patient Records regulations: The Federal rules restrict any use of the information to criminally investigate or prosecute any alcohol or drug abuse patient.[facility] the event this information is protected by the Federal Confidentiality of Alcohol and Drug Abuse Patient Records regulations: The Federal rules restrict any use of the information to criminally investigate or prosecute any alcohol or drug abuse patient.[facility] the event this information is protected by the Federal Confidentiality of Alcohol and Drug Abuse Patient Records regulations: The Federal rules restrict any use of the information to criminally investigate or prosecute any alcohol or drug abuse patient.[facility] the event this information is protected by the Federal Confidentiality of Alcohol and Drug Abuse Patient Records regulations: The Federal rules restrict any use of the information to criminally investigate or prosecute any alcohol or drug abuse patient.[facility] the event this information is protected by the Federal Confidentiality of Alcohol and Drug Abuse Patient Records regulations: The Federal rules restrict any use of the information to criminally investigate or prosecute any alcohol or drug abuse patient.[facility] the event this information is protected by the Federal Confidentiality of Alcohol and Drug Abuse Patient Records regulations: The Federal rules restrict any use of the information to criminally investigate or prosecute any alcohol or drug abuse patient.[facility] the event this information is protected by the Federal Confidentiality of Alcohol and Drug Abuse Patient Records regulations: The Federal rules restrict any use of the information to criminally investigate or prosecute any alcohol or drug abuse patient.[facility] the event this information is protected by the Federal Confidentiality of Alcohol and Drug Abuse Patient Records regulations: The Federal rules restrict any use of the information to criminally investigate or prosecute any alcohol or drug abuse patient.[facility] the event this information is protected by the Federal Confidentiality of Alcohol and Drug Abuse Patient Records regulations: The Federal rules restrict any use of the information to criminally investigate or prosecute any alcohol or drug abuse patient.[facility] the event this information is protected by the Federal Confidentiality of Alcohol and Drug Abuse Patient Records regulations: The Federal rules restrict any use of the information to criminally investigate or prosecute any alcohol or drug abuse patient.[facility] the event this information is protected by the Federal Confidentiality of Alcohol and Drug Abuse Patient Records regulations: The Federal rules restrict any use of the information to criminally investigate or prosecute any alcohol or drug abuse patient.[facility] the event this information is protected by the Federal Confidentiality of Alcohol and Drug Abuse Patient Records regulations: The Federal rules restrict any use of the information to criminally investigate or prosecute any alcohol or drug abuse patient.[facility] the event this information is protected by the Federal Confidentiality of Alcohol and Drug Abuse Patient Records regulations: The Federal rules restrict any use of the information to criminally investigate or prosecute any alcohol or drug abuse patient.[facility] Reason for Visit (unrecogniz ed section and content) Reason Onset Date Comments Refill Request 08/31/2021 Reason Comments Breast Cancer 1 year follow up Reason Onset Date Comments Refill Request 06/10/2022 Reason Comments Results Reason Comments Results Reason Comments Breast Problem Reason Comments Orders Reason Comments Breast Cancer 6 month follow up Reason Comments Orders Reason Comments Question Reason Comments Diazepam Reason Comments Breast Cancer Follow up Reason Comments Change Of Order Reason Onset Date Comments Refill Request 01/23/2024 Care Teams (unrecognized sec tion and content) Cannoneer Relationship Specialty Start Date End Date Itz Hall DO [address] [place] [address] PCP - General Family Practice 06/01/20 Cannoneer Relationship Specialty Start Date End Date Itz Hall DO [address] [place] [address] PCP - General Family Medicine 06/01/20 Cannoneer Relationship Specialty Start Date End Date Itz Hall DO [address] [place] [address] PCP - General Family Medicine 06/01/20 Cannoneer Relationship Specialty Start Date End Date Itz Hall DO [address] [place] [address] PCP - General Family Medicine 06/01/20 Cannoneer Relationship Specialty Start Date End Date Itz Hall DO [address] [place] [address] PCP - General Family Medicine 06/01/20 Cannoneer Relationship Specialty Start Date End Date Itz Hall DO [address] [place] [address] PCP - General Family Medicine 06/01/20 Cannoneer Relationship Specialty Start Date End Date Itz Hall DO PCP - General Family Medicine 06/01/20 Cannoneer Relationship Specialty Start Date End Date Itz Hall DO PCP - General Family Medicine 06/01/20 Cannoneer Relationship Specialty Start Date End Date Itz Hall DO PCP - General Family Medicine 06/01/20 Cannoneer Relationship Specialty Start Date End Date Itz Hall DO PCP - General Family Medicine 06/01/20 Cannoneer Relationship Specialty Start Date End Date Itz Hall DO PCP - General Family Medicine 06/01/20 Cannoneer Relationship Specialty Start Date End Date Itz Hall PCP - General Family Medicine 06/01/20 Cannoneer Relationship Specialty Start Date End Date Robinson Pederson PA [address] [place] [address] PCP - General Family Medicine 12/16/23 Cannoneer Relationship Specialty Start Date End Date Robinson Pederson PA [address] [place] [address] PCP - General Family Medicine 12/16/23 INFORMATION SOURCE (unrecogn ized section and content) DATE CREATED AUTHOR 07/09/2022 [facility] DATE CREATED AUTHOR AUTHOR'S ORGANIZ ATION 12/15/[address] [facility] DATE CREATED AUTHOR AUTHOR'S ORGANIZ ATION 01/10/2024 [facility] DATE CREATED AUTHOR AUTHOR'S ORGANIZ ATION 02/18/[address] [facility] FOR RECORDS PERTAINING TO PATIENTS WHO ARE OR HAVE BEEN ENROLLED IN A CHEMICAL DEPENDENCY/SUBSTANCEABUSE PROGRAM, SOME INFORMATION MAY BE OMITTED. This clinical summary was aggregated from multiple sources. Caution should be exercised in using it in the provision of clinical care. This summary normalizes information from multiple sources, and as a consequence, information in this document may materially change the coding, format and clinical context of patient data. In addition, data may be omitted in some cases. CLINICAL DECISIONS SHOULD BE BASED ON THE PRIMARY CLINICAL RECORDS. [employer] [facility]. provides no warranty or guarantee of the accuracy or completeness of information in this document.
[2024-02-19] MEDS: LACTATED RINGER'S SOLUTION 1,000 ML 50 ML IV (10:04)
--- NOTE | 2024-02-19 11:11 | PC.NURSE ---
PATIENT IS STABLE DENIES ANY BOYLE BUT IS CONCERNED BECAUSE SHE STILL HEARS MUFFLED SOUNDS, PATIENT THOUGHT SHE WOULD HEAR BETTER.
== END 2024-02-19 11:41 | disposition home or self-care (01) ==
PROVIDERS: PCP Family Medicine; Visit Provider Otolaryngology
PROC: (CPT 126; principal; 2024-02-19 10:30)
DX: H69.83 Other specified disorders of Eustachian tube, bilateral (principal); H90.2 Conductive hearing loss, unspecified; Z98.51 Tubal ligation status; F17.210 Nicotine dependence, cigarettes, uncomplicated; Z86.718 Personal history of other venous thrombosis and embolism
CPT/HCPCS: 69436; 36415; J1100; J1885; J2405; J2704